=== PATIENT | male | born 1975 | race Caucasian/White ===

== ENCOUNTER 2024-06-17 03:38 | Inpatient (IN) | payer OTHER, SELFPAY ==
[2024-06-17] VITALS (111 sets, daily range): BP systolic 106–139; BP diastolic 59–87; PULSE 43–88; TEMP 36.4–37.4; O2SAT 89–100; BMI 29.8; BMI 29.9
--- NOTE | 2024-06-17 03:56 | CT_ITS ---
The [address] [address] Patient Name: LETHA SALMON MRN: [id number] date: 1975 Sex: M Assigned Patient Location: ER Current Patient Location: .[facility] Accession/Order Number: [id number] Exam Date: 06/17/2024 04:33 Report Date: 06/17/2024 05:05 At the request of: MORTEZA KEYES Procedure: CT abdomen pelvis w con EXAM: CT abdomen pelvis w con HISTORY: 2 days of diffuse abdominal pain COMPARISON: None. TECHNIQUE: Axial CT imaging was performed through the abdomen and pelvis with intravenous contrast. Multiplanar reformats were performed. Dose reduction techniques were achieved by using automated exposure control and/or adjustment of mA and/or kV according to patient size and/or use of iterative reconstruction technique. FINDINGS: Lung bases: Lung bases are clear. No pleural effusion. GI upper: Unremarkable. Liver: Normal size and contour. Gallbladder: No significant abnormality. No cholelithiasis. Biliary system: No intra or extrahepatic biliary ductal dilatation. Spleen: Normal size. Pancreas: Unremarkable. Adrenal glands: Normal adrenal glands. Kidneys/ureters: Normal contours. No hydronephrosis. No nephrolithiasis or ureterolithiasis. Vessels: No aneurysm. Lymph Nodes: No lymphadenopathy. Small bowel: No wall thickening or dilatation. Colon: No dilatation. There are sigmoid diverticulosis. There is short segment circumferential wall thickening of the sigmoid with surrounding fat stranding and adjacent pocket of air, measuring 1.4 x 3.8 cm, representing perforated acute sigmoid diverticulitis. Appendix: No findings of appendicitis. Peritoneal cavity: Fat stranding of the lower abdomen and pneumoperitoneum. Lower : Unremarkable. Bones: No acute bony abnormality. Soft tissues: No acute finding. Additional findings: None. CT/CT abdomen pelvis w con IMPRESSION: perforated acute sigmoid diverticulitis. Electronically authenticated by: ELIESER DAVILA Date: 06/17/2024 05:05
--- NOTE | 2024-06-17 03:58 | ED.ABDPAIN1 ---
HPI - Abdominal Pain General Chief Complaint: Abdominal Pain Stated Complaint: BODYACHES BACK PAIN Time Seen by Provider: 06/17/24 03:43 Source: patient Mode of arrival: walk-in Limitations: no limitations History of Present Illness HPI narrative: 49-year-old male presents for diffuse abdominal pain. It started 2 days ago and he has not really been able to eat anything. He has never had abdominal issues previously and is never had any abdominal surgeries. The pain is continuous and he points mostly to the mid abdomen but he states it hurts everywhere. No constipation or diarrhea. The pain is moderate to severe. Related Data Allergies Allergy/AdvReac Type Severity Reaction Status Date / Time No Known Drug Allergies Allergy Verified 06/17/24 03:48 Review of Systems ROS Narrative A ten point review of systems is negative except as noted above. Exam Narrative Exam Narrative: Nurses note and vital signs reviewed and patient is not hypoxic. General: The patient appears uncomfortable. Skin: Warm, dry, no pallor noted. There is no rash noted. Head: Normocephalic, atraumatic Eye: Normal conjunctiva, no drainage Ears, Nose, Mouth, and Throat: oral mucosa is moist. Nares patent. Cardiovascular: Regular Rate and Rhythm Respiratory: Patient is in no distress, no accessory muscle use, lungs are clear to auscultation, no wheezing, rales or rhonchi Back: non-tender GI: Diffuse tenderness. No masses. Musculoskeletal: The patient has no evidence of calf tenderness, no pitting edema, symmetrical pulses noted bilaterally Neurological: A&O, normal speech Psychiatric: Cooperative Constitutional Vital Signs, click to edit/add: Last Vital Signs Temp 99.1 F 06/17/24 03:44 Pulse 88 06/17/24 03:44 Resp 06/17/24 03:44 BP 123/81 06/17/24 03:44 Pulse Ox 98 06/17/24 03:44 Course Vital Signs Vital signs: Vital Signs Temperature 99.1 F 06/17/24 03:44 Pulse Rate 88 06/17/24 03:44 Respiratory Rate 06/17/24 03:44 Blood Pressure 123/81 06/17/24 03:44 Pulse Oximetry 98 06/17/24 03:44 Temperature 99.1 F 06/17/24 03:44 Pulse Rate 88 06/17/24 03:44 Respiratory Rate 06/17/24 03:44 Blood Pressure 123/81 06/17/24 03:44 Pulse Oximetry 98 06/17/24 03:44 MDM - Abdominal Pain MDM Narrative Medical decision making narrative: WBC is 20,000. CT scan is ordered and pending and the patient is signed out to Dr. Hagan. Differential Diagnosis Differential diagnosis: Likely abdominal pain, acute appendicitis, calculus of kidney, constipation, diverticulitis, small bowel obstruction and other (Biliary disease) Lab Data Attestation: I reviewed the patient's lab results. Labs: Lab Results 06/17/24 Range/Units 04:00 WBC 20.2 H (4.0-11.0) 10^3/uL RBC 4.73 (4.70-6.10) 10^6/uL Hgb 15.3 (14.0-18.0) g/dL Hct 43.7 (42.0-54.0) % MCV 92.4 (80.0-94.0) fL MCH 32.3 (25.9-34.0) pg MCHC 35.0 (29.9-35.2) g/dL RDW 11.9 (11.0-15.0) % Plt Count 218 (150-450) 10^3/uL MPV 10.4 (9.5-13.5) fL Neut % (Auto) 88.6 H (43.0-75.0) % Lymph % (Auto) 3.7 L (20.5-60.0) % [place] % (Auto) 6.7 (1.7-12.0) % Eos % (Auto) 0.2 L (0.9-7.0) % Baso % (Auto) 0.1 L (0.2-2.0) % Neut # (Auto) 17.9 H (1.4-6.5) 10^3/uL Lymph # (Auto) 0.7 L (1.2-3.8) 10^3/uL [place] # (Auto) 1.4 H (0.3-0.8) 10^3/uL Eos # (Auto) 0.1 (0.0-0.7) 10^3/uL Baso # (Auto) 0.0 (0.0-0.1) 10^3/uL Abs Immat Gran (auto) 0.14 H (0.00-0.03) 10^3/uL Imm/Tot Granulo (auto) 0.7 H (0.0-0.5) % Sodium 134 L (136-145) mmol/L Potassium 4.0 (3.5-5.1) mmol/L Chloride 101 (98-107) mmol/L Carbon Dioxide 23.0 (21.0-32.0) mmol/L Anion Gap 14.0 BUN 17.0 (7.0-18.0) mg/dL Creatinine 0.95 (0.70-1.30) mg/dL Est GFR ( Amer) >60 (>=60) Est GFR (Non-Af Amer) >60 (>=60) BUN/Creatinine Ratio 17.9 Glucose 139 H (74-106) mg/dL Calcium 8.9 (8.5-10.1) mg/dL Total Bilirubin 4.0 H (0.2-1.0) mg/dL Direct Bilirubin 0.8 H* (0.0-0.2) mg/dL AST 26 (15-37) U/L ALT 43 (16-63) U/L Alkaline Phosphatase 135 H (46-116) U/L Total Protein 7.2 (6.4-8.2) g/dL Albumin 3.4 (3.4-5.0) g/dL Globulin 3.8 g/dL Albumin/Globulin Ratio 0.9 Amylase 37 (25-115) U/L Lipase 21.0 (16.0-77.0) U/L Discharge Plan Discharge Chief Complaint: Abdominal Pain Clinical Impression: Abdominal pain Patient Disposition: Still a Patient Print Language: Mohawk Referrals: Physician,Non-Staff, MD [Primary Care Provider] - 1 week
[2024-06-17 04:14] LABS: Basophils Percent Auto 0.1 % (0.2-2.0); Eosinophils Absolute Auto 0.1 10^3/uL (0.0-0.7); Eosinophils Percent Auto 0.2 % (0.9-7.0); Hematocrit 43.7 % (42.0-54.0); Hemoglobin 15.3 g/dL (14.0-18.0); Immature Granulocytes Abs Auto 0.14 10^3/uL (0.00-0.03); Immature Granulocytes Pct Auto 0.7 % (0.0-0.5); Lymphocytes Absolute Auto 0.7 10^3/uL (1.2-3.8); Lymphocytes Percent Auto 3.7 % (20.5-60.0); Mean Corpuscular Hemoglobin 32.3 pg (25.9-34.0); Mean Corpuscular Volume 92.4 fL (80.0-94.0); Mean Platelet Volume 10.4 fL (9.5-13.5); Monocytes Absolute Auto 1.4 10^3/uL (0.3-0.8); Monocytes Percent Auto 6.7 % (1.7-12.0); Neutrophils Absolute Auto 17.9 10^3/uL (1.4-6.5); Neutrophils Percent Auto 88.6 % (43.0-75.0); Platelet Count 218 10^3/uL (150-450); Red Blood Count 4.73 10^6/uL (4.70-6.10); Red Cell Distribution Width 11.9 % (11.0-15.0); White Blood Count 20.2 10^3/uL (4.0-11.0)
[2024-06-17] MEDS: ONDANSETRON PF 4 MG/2 ML VIAL IV ×3 (04:14→20:48)
[2024-06-17] MEDS: 0.9 % SODIUM CHLORIDE 1,000 ML 125 ML IV (04:14)
[2024-06-17] MEDS: MORPHINE SULFATE 4 MG/ML VIAL IV (04:17)
[2024-06-17 04:34] LABS: Alanine Aminotransferase 43 U/L (16-63); Albumin Globulin Ratio 0.9; Albumin Level 3.4 g/dL (3.4-5.0); Alkaline Phosphatase 135 U/L (46-116); Amylase 37 U/L (25-115); Aspartate Amino Transferase 26 U/L (15-37); BUN Creatinine Ratio 17.9; Calcium 8.9 mg/dL (8.5-10.1); Chloride 101 mmol/L (98-107); Estimated GFR (African America >60 (>=60); Estimated GFR (Non-African Ame >60 (>=60); Globulin 3.8 g/dL; Glucose 139 mg/dL (74-106); Sodium 134 mmol/L (136-145); Total Protein 7.2 g/dL (6.4-8.2)
[2024-06-17 04:43] LABS: Bilirubin Direct 0.8 mg/dL (0.0-0.2)
[2024-06-17] MEDS: HYDROMORPHONE HCL 1 MG/ML CARTRIDGE IV ×3 (05:25→10:28)
[2024-06-17] MEDS: PIPERACILLIN SODIUM/TAZOBACTAM 3.375 GM in 0.9 % SODIUM CHLORIDE 50 ML IV ×3 (05:27→21:55)
--- NOTE | 2024-06-17 05:41 | PC.NURSE ---
Dr. Hagan speaks with Dr. Oviedo at this time.
[2024-06-17] MEDS: LACTATED RINGER'S SOLUTION 1,000 ML 50 ML IV ×3 (06:20→09:19)
--- NOTE | 2024-06-17 06:36 | PC.NURSE ---
RN from surgery department arrives at this time and patient taken to surgical area.
--- NOTE | 2024-06-17 07:15 | P.GSHP_ITS ---
History of Present Illness History of Present Illness Chief complaint: BODYACHES BACK PAIN Narrative: 49 yo M presents with abdominal pain that started Sunday. He thought at first he was constipated and took a bowel regimen. Pain got far worse into Sunday and he started having diffuse tenderness throughout. Denies any bloody BMs. Never had this pain before. No prior surgeries. Takes medicine for GERD. Denies use of tobacco products. Discussed the need for surgery and patient understood the risks and agreed to proceed. Review of Systems ROS Status of ROS 10 or more systems reviewed and unremark able except as noted in history and below Meds Home Medications and Allergies Allergies Allergy/AdvReac Type Severity Reaction Status Date / Time No Known Drug Allergies Allergy Verified 06/17/24 03:48 Exam Constitutional Vital Signs, click to edit/add: Last Vital Signs Temp 99.1 F 06/17/24 03:44 Pulse 68 06/17/24 06:21 Resp 18 06/17/24 06:21 BP 118/75 06/17/24 06:21 Pulse Ox 96 06/17/24 06:21 O2 Del Method Room Air 06/17/24 06:21 Common normals: average body habitus, oriented x3, healthy appearing and alert HENMT Common normals: normocephalic Head and scalp: normal to inspection Eye Common normals: PERRL and EOMs intact bilaterally Respiratory Common normals: normal respiratory effort and no retractions Cardio Common normals: regular rhythm Rate: tachycardic GI Palpation: soft, tender and guarding Other: + diffuse tenderness, + rebound, no prior scars noted Extremity Common normals: normal to inspection and full ROM Neuro Common normals: oriented x3 Sensorium/orientation: awake and alert Psych Appearance: grossly normal and well kempt Results Results Abdomen CT scan report/results: image reviewed Assessment and Plan Assessment and Plan (1) Abdominal pain: (2) Perforated sigmoid colon: Plan 1. Ex lap, bowel resection, all indicated procedures, consent obtained and RN witnessed 2. Cont IV Abx, IV fluids, cont sol 3. Post op recommendations to follow
[2024-06-17] MEDS: HYDROMORPHONE HCL 1 MG/ML CARTRIDGE INJ (10:12)
[2024-06-17] MEDS: LACTATED RINGER'S SOLUTION 1,000 ML 75 ML IV (10:47)
[2024-06-17] MEDS: OXYCODONE HCL 5 MG TABLET PO ×3 (10:53→21:56)
--- NOTE | 2024-06-17 11:01 | PC.NURSE ---
dressing is clean and dry at this time upon transfer to icu urine is concentrated yellow in catheter
--- NOTE | 2024-06-17 11:48 | W.PM.PROCNOT ---
Date of procedure: 06/17/24 Pre-op diagnosis: perforated bowel Post-op diagnosis: other (perforated sigmoid diverticulitis ) Procedure: Procedure: exploratory laparotomy, sigmoidectomy, end colostomy creation, abdominal washout Findings: wound class 4, perforated and inflamed sigmoid colon consistent with perforated sigmoid diverticulitis Patient was taken operating room placed on operating table underwent general anesthesia preop antibiotics were given and at this time. At this point the abdomen is prepped draped in normal sterile fashion. A midline incision was made with a 10 blade scalpel through the skin followed by electrocautery for dissection down to the fascia. The fascia was entered sharply under care and direct visualization. Once access to the peritoneal cavity was achieved an [employer] wound retractor system was placed. There was of note at the start of the case opaque white purulent fluid consistent with wound class 4. Some of the small bowel was involved with the inflammation. This was gently . At this time I began with mobilizing the lower sigmoid.? Small bowel was retracted away after the patient was placed in Trendelenburg position. I began by coming from the medial to lateral approach.? Lifting the colon superiorly.? Was able to find the vascular structures.? Once I was able to gain control of the vessels using the aid of a ligasure I then continued the dissection superiorly.?? Dissection was carried from a medial to lateral approach as is a normal for colectomy.? Once were happy with our superior dissection I then turned my attention to the white line of Toldt.? I freed this up superiorly off for good mobilization. Once I was happy with the mobilization of the colon.? And make sure this would reach the anterior abdominal wall. At this point a 75mm stapler was used to fire across the appropriate proximal location of the descending colon making sure to have removed all the diseased sigmoid colon that was perforated and inflamed.? There was no bleeding from the staple line at that time.? And the end of the descending colon came up nicely to the anterior abdominal wall. A spot on the L lateral abdomen pre-determined for a stoma was then excised after grasping the skin with a Arely.? Dissection was carried down the fascia. A stellate incision was made in the anterior fascia. The muscle was split and then a posterior incision was made in the posterior fascia. The end of the colon which was previously grasped with a system port bowel grasper was then but through the hole.? After confirming the at the size of the hole was wide enough to accommodate the colon without ischemia. The distal end of the colon was then freely dissected and a curved TA stapler was used to transect the colon at the rectosigmoid junction distal to the diseased bowel. The rectal stump was marked with a 2-0 blue Prolene stitch for easier finding on future reversal. The abdomen was irrigated and the small bowel was ran and confirmed to be healthy and no serosal tears or issues. The bowel planned for end colostomy was again checked for viability, appropriate length with no tension, no twisting of the bowel or mesentery and good blood flow. All instruments were removed from the abdomen and the colten wound retractor. Counts were correct at this time. The midline fascia was closed with looped 0 PDS from inferior and superior in a running fashion. The skin was irrigated and closed loosely with danial. The midline incision was covered and the end ostomy was then matured in a verna type fashion with 3-0 vicryl. A wound ostomy appliance was placed. The ostomy was checked with finger digitation to ensure an open fascia, which was confirmed. Counts were correct at the end of the case. The patient tolerated the procedure and was taken to the PACU in stable condition. Anesthesia: DIEGO Surgeon: Jamie Oviedo Estimated blood loss (mL): 20 Pathology: other (sigmoid colon) Condition: stable Disposition: PACU
[2024-06-17] MEDS: ACETAMINOPHEN 500 MG TABLET 1000 MG PO (14:12)
[2024-06-17] MEDS: GABAPENTIN 100 MG CAPSULE PO ×2 (14:13→21:57)
[2024-06-17] MEDS: CYCLOBENZAPRINE HCL 10 MG TABLET PO ×2 (14:13→21:55)
--- NOTE | 2024-06-17 14:21 | P.HP_ITS ---
HPI H&P: HPI History of Present Illness Chief complaint: BODYACHES BACK PAIN Narrative: 49-year-old male with no past medical history presented to the hospital with left lower quadrant abdominal pain that was persistent, associated with nausea and loss of appetite. He was evaluated in ER and was found to have acute sigmoid diverticulitis with perforation. She was taken to the OR earlier in the morning. Patient was seen postoperatively after colectomy, with formation of colostomy. He denies nausea, vomiting. He is complaining of mild postoperative abdominal pain. He has no prior history of colonoscopy or intra-abdominal surgeries. He is generally healthy with no significant past medical history. Opioid HPI Opioid Management Most Recent Pain and Opioid Data: Last Pain Scale 4 06/18/24 06:17 Last Pain Assessment 06/18/24 06:00 Last MAR Pain Assessment 06/18/24 06:17 Last ORT Total Score 0 06/17/24 11:13 Last ORT Risk Category Low Risk 06/17/24 11:13 Review of Systems ROS Status of ROS 10 or more systems reviewed and unremark able except as noted in history and below PFSH PFSH Medical History (Updated 06/17/24 @ 14:24 by Shaikh Ileana MD) Perforated sigmoid colon ?K63.1 - Perforation of intestine (nontraumatic) (ICD-10) Colostomy in place ?Z93.3 - Colostomy status (ICD-10) Family History (Updated 06/17/24 @ 11:50 by Cynthia Rivero RN) Mother Family history of pancreatic cancer Brother Diabetes Father Diabetes Social History (Updated 06/17/24 @ 11:55 by Cynthia Rivero RN) Within the past year, how often did you have a drink containing alcohol: monthly or less Within the past year, how many standard drinks containing alcohol did you have on a typical day: 1 or 2 Within the past year, how often did you have six or more drinks on one occasion: never Total score: 0 Score interpretation: A score less than 4 is consistent with normal alcohol consumption. Smoking status: Former smoker Non-prescribed substance use: cannabis (any form) Non-prescribed substance use details: smoke and use edibles marijuana Highest level of school completed/degree received: 11th grade Do you want help with school or training: No Are you now , , , , never or living with a partner: In a typical week, how many times do you talk on the telephone with family, friends, or neighbors: 3 or more times per week How often do you get together with friends or relatives: 3 or more times per week How often do you attend mormonism or buddhism services: never Little interest or pleasure in doing things: not at all Feeling down, depressed, or hopeless: not at all Feel stressed/tense/nervous/anxious/difficulty sleeping: to some extent Life stressors: financial matters Life stressor details: afraid of losing home from being off work Due to disability, difficulty making decisions: No Do you think of yourself as: straight/heterosexual Gender Identity: male Meds Home Medications and Allergies Home Medications ?Medication ?Instructions ?Recorded ?Confirmed ?Type No Known Home Medications 06/17/24 06/17/24 History Allergies Allergy/AdvReac Type Severity Reaction Status Date / Time No Known Drug Allergies Allergy Verified 06/17/24 03:48 Exam Constitutional Vital Signs, click to edit/add: Last Vital Signs Temp 98.6 F 06/17/24 11:13 Pulse 61 06/17/24 11:13 Resp 16 06/17/24 11:13 BP 121/81 06/17/24 11:13 Pulse Ox 93 L 06/17/24 11:13 O2 Del Method Room Air 06/17/24 11:13 Documenting provider has reviewed patient's vital signs: yes Common normals: no apparent distress and oriented x3 General appearance: cooperative HENMT Common normals: normocephalic and head/scalp atraumatic Head and scalp: normocephalic and atraumatic Eye Common normals: conjunctivae normal and no scleral icterus Conjunctiva: conjunctiva(e) normal Respiratory Common normals: normal respiratory effort and clear to auscultation bilaterally Effort & inspection: able to speak in complete sentences Auscultation: clear to auscultation bilaterally Cardio Common normals: regular rate, S1 normal heart sound and S2 normal heart sound Rate: regular rate Heart sounds: S1 normal and S2 normal GI Common normals: soft to palpation and no hepatosplenomegaly Other: post op dressing from laparotomy. Has colostomy in place. Extremity Common normals: no clubbing, cyanosis or edema Neuro Common normals: oriented x3, moves all extremities and no focal motor deficits Psych Common normals: mental status grossly normal, denies hallucinations, denies homicidal ideation and denies suicidal ideation Results Labs Labs: Short CBC 06/17/24 Range/Units 04:00 WBC 20.2 H (4.0-11.0) 10^3/uL Hgb 15.3 (14.0-18.0) g/dL Hct 43.7 (42.0-54.0) % Plt Count 218 (150-450) 10^3/uL BMP 06/17/24 04:00 Sodium 134 L Potassium 4.0 Chloride 101 Carbon Dioxide 23.0 BUN 17.0 Creatinine 0.95 Glucose 139 H Calcium 8.9 Liver Function 06/17/24 Range/Units 04:00 Total Bilirubin 4.0 H (0.2-1.0) mg/dL Direct Bilirubin 0.8 H* (0.0-0.2) mg/dL AST 26 (15-37) U/L ALT 43 (16-63) U/L Alkaline Phosphatase 135 H (46-116) U/L Albumin 3.4 (3.4-5.0) g/dL Assessment and Plan Assessment and Plan (1) Perforated sigmoid colon: (2) Abdominal pain: Qualifiers: Abdominal location: left lower quadrant Qualified Code(s): R10.32 - Left lower quadrant pain Plan Patient presented with left lower quadrant abdominal pain, found to have perforated sigmoid colon. He is a status post laparotomy, colectomy and now has colostomy in place. He is currently on ice chips only as per general surgery. Continue with combination of oral and IV narcotics for postoperative pain control. Continue with supportive care. Postoperative care as per general surgery. Continue with IV Zosyn. Urinary Catheter Management Urinary Catheter Management Urethral: Cath placed during this visit: no
[2024-06-17] MEDS: PANTOPRAZOLE SODIUM 40 MG VIAL IV (14:48)
--- NOTE | 2024-06-17 14:50 | SWNOTE1 ---
SW stopped in and spoke with pt in regards to financial concerns. Pt voiced he was not feeling very good at all. SW did recommend to pt to call his HR team at his employer and discuss concerns with them. SW not sure if his employer will have any short term assistance. Pt voiced understanding.
[2024-06-17] MEDS: MORPHINE SULFATE 2 MG/ML SYRINGE IV ×2 (15:01→19:21)
[2024-06-17 19:08] LABS: Bilirubin Urine MODERATE (NEGATIVE); Blood Urine SMALL (NEGATIVE); Clarity Urine CLEAR (CLEAR); Color Urine DK. ORANGE (YELLOW); Glucose Urine UA NEGATIVE (NEGATIVE); Ketones Urine 15 mg/dL (NEGATIVE); Leukocyte Esterase Urine NEGATIVE (NEGATIVE); Nitrite Urine NEGATIVE (NEGATIVE); Protein Urine 100 mg/dL (NEG/TRACE); Specific Gravity Urine >=1.030 (1.005-1.025)
[2024-06-17 19:15] LABS: Bacteria Urine MODERATE #/HPF (NONE SEEN); Cast Seen? NONE SEEN #/LPF (NONE SEEN); Crystals Seen? None Seen #/HPF (None Seen); Mucus Urine MODERATE (NONE SEEN); Squamous Epithelial Cell Urine NONE SEEN #/LPF (NONE/RARE); Urine Culture Indicated YES
[2024-06-17] MEDS: HYDROMORPHONE HCL 1 MG/ML CARTRIDGE 0.5 MG IVP (20:22)
[2024-06-17] MEDS: ENOXAPARIN SODIUM 40 MG/0.4 ML SYRINGE SUBQ (20:48)
[2024-06-17] MEDS: LACTATED RINGER'S SOLUTION 1,000 ML 115 ML IV (20:49)
[2024-06-18] VITALS (35 sets, daily range): BP systolic 96–145; BP diastolic 66–82; PULSE 54–128; TEMP 36.9–37.2; O2SAT 94–99
[2024-06-18] MEDS: HYDROMORPHONE HCL 1 MG/ML CARTRIDGE 0.5 MG IVP ×2 (00:05→04:00)
[2024-06-18] MEDS: OXYCODONE HCL 5 MG TABLET PO (06:17)
[2024-06-18] MEDS: GABAPENTIN 100 MG CAPSULE PO ×2 (06:17→21:42)
[2024-06-18] MEDS: LACTATED RINGER'S SOLUTION 1,000 ML 115 ML IV ×2 (06:17→16:01)
[2024-06-18] MEDS: PIPERACILLIN SODIUM/TAZOBACTAM 3.375 GM in 0.9 % SODIUM CHLORIDE 50 ML IV ×3 (06:18→21:50)
[2024-06-18] MEDS: CYCLOBENZAPRINE HCL 10 MG TABLET PO (06:18)
[2024-06-18 06:35] LABS: Basophils Percent Auto 0.2 % (0.2-2.0); Eosinophils Percent Auto 0.1 % (0.9-7.0); Hemoglobin 13.5 g/dL (14.0-18.0); Immature Granulocytes Abs Auto 0.04 10^3/uL (0.00-0.03); Immature Granulocytes Pct Auto 0.3 % (0.0-0.5); Lymphocytes Percent Auto 8.5 % (20.5-60.0); Mean Corpuscular HGB Conc 33.8 g/dL (29.9-35.2); Mean Corpuscular Hemoglobin 32.1 pg (25.9-34.0); Mean Corpuscular Volume 95.2 fL (80.0-94.0); Mean Platelet Volume 9.8 fL (9.5-13.5); Monocytes Percent Auto 7.8 % (1.7-12.0); Neutrophils Absolute Auto 10.2 10^3/uL (1.4-6.5); Neutrophils Percent Auto 83.1 % (43.0-75.0); Platelet Count 163 10^3/uL (150-450); White Blood Count 12.3 10^3/uL (4.0-11.0)
[2024-06-18 07:03] LABS: Alanine Aminotransferase 30 U/L (16-63); Albumin Globulin Ratio 0.8; Albumin Level 2.4 g/dL (3.4-5.0); Alkaline Phosphatase 104 U/L (46-116); Anion Gap 11.5; Aspartate Amino Transferase 16 U/L (15-37); BUN Creatinine Ratio 17.4; Bilirubin Total 2.9 mg/dL (0.2-1.0); Calcium 8.7 mg/dL (8.5-10.1); Carbon Dioxide 26.2 mmol/L (21.0-32.0); Chloride 105 mmol/L (98-107); Estimated GFR (African America >60 (>=60); Estimated GFR (Non-African Ame >60 (>=60); Globulin 3.2 g/dL; Glucose 93 mg/dL (74-106); Potassium 4.7 mmol/L (3.5-5.1); Sodium 138 mmol/L (136-145); Total Protein 5.6 g/dL (6.4-8.2)
[2024-06-18] MEDS: HYDROMORPHONE HCL 0.5 MG/0.5 ML SYRINGE IV ×3 (08:07→20:02)
[2024-06-18] MEDS: KETOROLAC TROMETHAMINE 30 MG/ML VIAL IVP ×2 (08:07→16:00)
--- NOTE | 2024-06-18 09:46 | P.IMPN_ITS ---
Progress Note: A&P Assessment and Plan (1) Perforated sigmoid colon: Assessment and Plan: Status post colectomy with colostomy formation. Postoperative care as per general surgery. Pain is reasonably controlled. Patient is strictly n.p.o. Monitor closely. (2) Abdominal pain: Assessment and Plan: Due to perforated sigmoid diverticulitis. Status post colectomy with colostomy formation. Qualifiers: Abdominal location: left lower quadrant Qualified Code(s): R10.32 - Left lower quadrant pain Internal Medicine - PN: Subj Subjective Interval history: Seen and examined. No overnight events. Pain is reasonably controlled. Exam Constitutional Vital Signs, click to edit/add: Last Vital Signs Temp 99.0 F 06/18/24 07:37 Pulse 77 06/18/24 08:25 Resp 56 H 06/18/24 08:21 BP 116/72 06/18/24 08:00 Pulse Ox 95 06/18/24 08:00 O2 Del Method Room Air 06/18/24 04:00 Documenting provider has reviewed patient's vital signs: yes Common normals: no apparent distress and oriented x3 General appearance: cooperative Respiratory Common normals: normal respiratory effort and clear to auscultation bilaterally Effort & inspection: able to speak in complete sentences Auscultation: clear to auscultation bilaterally Cardio Common normals: regular rate, S1 normal heart sound and S2 normal heart sound Rate: regular rate Heart sounds: S1 normal and S2 normal GI Common normals: soft to palpation and no hepatosplenomegaly Other: post op dressing from laparotomy. Has colostomy in place. Extremity Common normals: no clubbing, cyanosis or edema Neuro Common normals: oriented x3, moves all extremities and no focal motor deficits Psych Common normals: mental status grossly normal, denies hallucinations, denies homicidal ideation and denies suicidal ideation Internal Medicine - PN: Obj Da Labs Labs: Laboratory Results - last 24 hr 06/17/24 06/18/24 18:45 06:20 WBC 12.3 H RBC 4.20 L Hgb 13.5 L Hct 40.0 L MCV 95.2 H MCH 32.1 MCHC 33.8 RDW 12.0 Plt Count 163 MPV 9.8 Neut % (Auto) 83.1 H Lymph % (Auto) 8.5 L [place] % (Auto) 7.8 Eos % (Auto) 0.1 L Baso % (Auto) 0.2 Neut # (Auto) 10.2 H Lymph # (Auto) 1.0 L [place] # (Auto) 1.0 H Eos # (Auto) 0.0 Baso # (Auto) 0.0 Abs Immat Gran (auto) 0.04 H Imm/Tot Granulo (auto) 0.3 Sodium 138 Potassium 4.7 Chloride 105 Carbon Dioxide 26.2 Anion Gap 11.5 BUN 16.0 Creatinine 0.92 Est GFR ( Amer) >60 Est GFR (Non-Af Amer) >60 BUN/Creatinine Ratio 17.4 Glucose 93 Calcium 8.7 Total Bilirubin 2.9 H AST 16 ALT 30 Alkaline Phosphatase 104 Total Protein 5.6 L Albumin 2.4 L Globulin 3.2 Albumin/Globulin Ratio 0.8 Urine Color Dk. orange Urine Clarity Clear Urine pH 6.0 Ur Specific [place] >=1.030 A Urine Protein 100 A Urine Glucose (UA) Negative Urine Ketones 15 A Urine Occult Blood Small A Urine Nitrite Negative Urine Bilirubin Moderate A Urine Urobilinogen 4.0 A Ur Leukocyte Esterase Negative Urine RBC 5-10 A Urine WBC 2-5 A Ur Squamous Epith Cells None seen Urine Crystals None seen Urine Bacteria Moderate A Urine Casts None seen Urine Mucus Moderate A Ur Culture Indicated? Yes Urinary Catheter Management Urinary Catheter Management Urethral: Cath placed during this visit: no
--- NOTE | 2024-06-18 10:09 | CM.NOTE ---
Rounds made with Dr. Tejeda. Dr. Tejeda discussed treatment plan with Javier and need for increased ambulation. Physicial Therapy to be ordered. No plan for discharge today
--- NOTE | 2024-06-18 10:09 | W.PM.WC ---
Wound Consult Note Assessment and Plan (1) Perforated sigmoid colon: Reason for Consult: ostomy care and education Assessment and Plan: Patient underwent exploratory lap, sigmoidectomy, end colostomy and abdominal washout 06.17.[address] O[place]o. He was having abdominal pain and presented to [facility] ER and found to have a perforated sigmoid diverticulitis. Patient was recently moved from ICU to Med/Surg. He is resting in bed, just receiving pain medication. He states he is doing ok but is having pain as he is guarding, speaking quietly, and not moving much in the bed. After brief introduction, stoma was assessed. Stoma type: End colostomy Location: LLQ abdomen Size: 1 round Stoma position: Appears to be fairly flush. Did not remove pouching appliance today due to patient's pain and appliance is in place without leakage. Stoma color: Moist, red and shiny There is some bloody drainage in the pouch along with a small amount of flatus. Abdomen is appropriately softly distended due to surgery with midline post op dressing in place. Patient is currently in a post op 2 piece appliance. No signs of leakage at this time. Plan is to return tomorrow for continued ostomy teaching and hands on teaching of preparing an appliance for pouch change and skin care during a pouch change. Left education folder as well as supplies and my contact information if any urgent matters arise prior to planned education tomorrow. Patient states his is currently out of state visiting their daughter and grandchild and will not be home until next Sunday. (2) Abdominal pain: Qualifiers: Abdominal location: left lower quadrant Qualified Code(s): R10.32 - Left lower quadrant pain Plan I would highly recommend home care to assist patient in continued education and care of new colostomy at discharge as well as supply ordering. Discussed with bedside RN today. Patient does seem motivated to learn. Did go over emptying pouch briefly today showing patient how to use clip closure, when and how to empty. Patient asked appropriate questions regarding daily care, showering, working. Please call [phone] with any questions and concerns. Will revisit tomorrow for continued education in ostomy care. Ethan Lowry, RN, CWON
--- NOTE | 2024-06-18 11:57 | PM.GSPN ---
Progress Note: A&P Assessment and Plan (1) Perforated sigmoid colon: Assessment and Plan: s/p 06/17/24 ex lap, sigmoidectomy and end colostomy creation Strict NPO, if has emesis place NGT to LIWS, monitor ostomy output and stoma appearance IV meds for pain and muscle spasms encourage ambulation and up in chair, continue hourly incentive spirometry use PT/OT referral Consult wound ostomy team Gentle IV fluids, want to avoid bowel edema, if UOP adequate can remove sol catheter (2) Abdominal pain: Qualifiers: Abdominal location: left lower quadrant Qualified Code(s): R10.32 - Left lower quadrant pain Subjective Subjective Interval history: Doing ok this am. He just switched rooms/beds and he said that after standing up and moving he actually had great relief from a lot of his abdominal discomfort and distention. He is no longer nauseated but did have emesis last night once. Questions answered. Informed him the importance of being up in a chair and walking around today. Keep up IS use. Exam Narrative Exam Narrative: General: awake, alert, no distress Head: normocephalic, atraumatic Neck: supple, no tracheal deviation Heart: RRR Lungs: equal chest rise and fall, non labored breathing Abdomen: soft, appropriate tenderness, no rebound or guarding, left sided ostomy pink and patent, bowel sweat noted in bag, midline incision dressing c/d/i Extremities: no lesions, grossly normal Skin: intact, no cyanosis Psychological: no apparent speech or mood disorder, appropriate for encounter Constitutional Vital Signs, click to edit/add: Last Vital Signs Temp 99.0 F 06/18/24 07:37 Pulse 77 06/18/24 08:25 Resp 56 H 06/18/24 08:21 BP 116/72 06/18/24 08:00 Pulse Ox 95 06/18/24 11:08 O2 Del Method Room Air 06/18/24 11:08 Urinary Catheter Management Urinary Catheter Management Urethral: Cath placed during this visit: no Urethral indwelling: Yes
--- NOTE | 2024-06-18 12:50 | SWNOTE1 ---
SW spoke to pt about home health for cholostomy care. Pt is in agreement as long as his insurance pays. SW let pt know that SW will check to see what HH takes his insurance and they will let SW know if he has a co-pay of any kind. SW checked [address] and they do have [employer] on list of insurances. Referral sent to [address] . Referral included face sheet, ED note, H&P, provider notes, general surgery notes, operative note, case management report, wound consult,and PT/OT notes.
[2024-06-18] MEDS: METHOCARBAMOL 1,000 MG/10 ML VIAL 1000 MG IV ×2 (13:04→21:50)
--- OUTSIDE RECORDS SUMMARY | 2024-06-18 13:45 | XMS_ITS | CCD ---
Author Organization [facility] Inform ion Partnership [facility] Care Team Providers Care Chair Frame Builder Name Role Phone DO Jamie Oviedo Attending Provider [phone] Results Test Name Value Interpretation Reference Range Facil ity Complete Blood Count Auto Di ffon 02-07-2022 Basophils (Bld) [#/Vol] 0.1 10*3/uL Normal 0.0-0.2 [facility] Comment on above: Order Comment: Reaso n for Exam Elevated liver enzymes Result Comment: PERF ORMED BY: [place] [address] PATHOLOGIST FIRE BOSS JONY CRISTOBAL M.D. Performed By: #### C BC, CMP, LIPID, PSATF #### [facility] [address] [place] [address] [place] Basophils/100 WBC (Bld) 0.9 % Normal . [facility] Comment on above: Order Comment: Reaso n for Exam Elevated liver enzymes Performed By: #### C BC, CMP, LIPID, PSATF #### [facility] [address] [place] [id number] [place] Eosinophils (Bld) [#/Vol] 0.1 10*3/uL Normal 0.0-0.45 [facility] Comment on above: Order Comment: Reaso n for Exam Elevated liver enzymes Performed By: #### C BC, CMP, LIPID, PSATF #### [facility] [address] [place] [address] [place] Eosinophils/100 WBC (Bld) 1.7 % Normal . [facility] Comment on above: Order Comment: Reaso n for Exam Elevated liver enzymes Performed By: #### C BC, CMP, LIPID, PSATF #### [facility] [address] [place] [address] Erythrocyte distribution width (RBC) [Ratio] 12.6 % Normal 12.0-14.8 [facility] Comment on above: Order Comment: Reaso n for Exam Elevated liver enzymes Performed By: #### C BC, CMP, LIPID, PSATF #### [facility] [address] Hematocrit (Bld) [Volume fraction] 45.2 % Normal 38.8-50.0 [facility] Comment on above: Order Comment: Reaso n for Exam Elevated liver enzymes Performed By: #### C BC, CMP, LIPID, PSATF #### [address] Hemoglobin (Bld) [Mass/Vol] 15.7 g/dL Normal 13.0-17.0 [facility] Comment on above: Order Comment: Reaso n for Exam Elevated liver enzymes Performed By: #### C BC, CMP, LIPID, PSATF #### [address] Lymphocytes (Bld) [#/Vol] 1.6 10*3/uL Normal 1.00-4.8 [facility] Comment on above: Order Comment: Reaso n for Exam Elevated liver enzymes Performed By: #### C BC, CMP, LIPID, PSATF #### [address] Lymphocytes/100 WBC (Bld) 27.5 % Normal . [facility] Comment on above: Order Comment: Reaso n for Exam Elevated liver enzymes Performed By: #### C BC, CMP, LIPID, PSATF #### [address] MCH (RBC) [Entitic mass] 32.3 pg Normal 27.5-35.2 [facility] Comment on above: Order Comment: Reaso n for Exam Elevated liver enzymes Performed By: #### C BC, CMP, LIPID, PSATF #### [address] MCV (RBC) [Entitic vol] 92.9 fL Normal 83.5-101 [facility] Comment on above: Order Comment: Reaso n for Exam Elevated liver enzymes Performed By: #### C BC, CMP, LIPID, PSATF #### [facility] [address] [place] [address] Mean Corpuscular HGB Conc 34.7 g/dL Normal 32.5-35.6 [facility] Comment on above: Order Comment: Reaso n for Exam Elevated liver enzymes Performed By: #### C BC, CMP, LIPID, PSATF #### [facility] [address] [place] [address] [place] Monocytes (Bld) [#/Vol] 0.4 10*3/uL Normal 0.0-0.8 [facility] Comment on above: Order Comment: Reaso n for Exam Elevated liver enzymes Performed By: #### C BC, CMP, LIPID, PSATF #### [facility] [address] [place] [address] Monocytes/100 WBC (Bld) 6.1 % Normal . [facility] Comment on above: Order Comment: Reaso n for Exam Elevated liver enzymes Performed By: #### C BC, CMP, LIPID, PSATF #### [facility] [address] [place] [address] [place] Neutrophils (Bld) [#/Vol] 3.8 10*3/uL Normal 1.8-7.7 [facility] Comment on above: Order Comment: Reaso n for Exam Elevated liver enzymes Performed By: #### C BC, CMP, LIPID, PSATF #### [facility] [address] [place] [address] [place] Neutrophils/100 WBC (Bld) 63.8 % Normal . [facility] Comment on above: Order Comment: Reaso n for Exam Elevated liver enzymes Performed By: #### C BC, CMP, LIPID, PSATF #### [facility] [address] [place] [address] [place] Nucleated RBC/100 WBC (Bld) [Ratio] 0.1 % Normal 0-0.5 [facility] Comment on above: Order Comment: Reaso n for Exam Elevated liver enzymes Performed By: #### C BC, CMP, LIPID, PSATF #### [address] [place] [address] [place] Platelet mean volume (Bld) [Entitic vol] 8.7 fL Normal 6.6-10.1 [facility] Comment on above: Order Comment: Reaso n for Exam Elevated liver enzymes Performed By: #### C BC, CMP, LIPID, PSATF #### [facility] [address] Platelets (Bld) [#/Vol] 281 10*3/uL Normal 150-450 [facility] Comment on above: Order Comment: Reaso n for Exam Elevated liver enzymes Performed By: #### C BC, CMP, LIPID, PSATF #### [facility] [address] [place] [address] RBC (Bld) [#/Vol] 4.86 10*6/uL Normal 3.90-5.60 [facility] Comment on above: Order Comment: Reaso n for Exam Elevated liver enzymes Performed By: #### C BC, CMP, LIPID, PSATF #### [address] WBC (Bld) [#/Vol] 6.0 10*3/uL Normal 4.5-11.0 [facility] Comment on above: Order Comment: Reaso n for Exam Elevated liver enzymes Performed By: #### C BC, CMP, LIPID, PSATF #### [facility] [address] [place] [address] Comprehensive Metabolic Pane jayda 02-07-2022 Albumin [Mass/Vol] 4.1 g/dL Normal 3.2-5.5 [facility] Comment on above: Order Comment: Reaso n for Exam Elevated liver enzymes Performed By: #### C BC, CMP, LIPID, PSATF #### [facility] [address] [place] [address] Albumin/Globulin [Mass ratio] 1.7 {ratio} Normal [facility] Comment on above: Order Comment: Reaso n for Exam Elevated liver enzymes Performed By: #### C BC, CMP, LIPID, PSATF #### [facility] [address] [place] [address] [place] ALP [Catalytic activity/Vol] 86 U/L Normal 32-92 [facility] Comment on above: Order Comment: Reaso n for Exam Elevated liver enzymes Performed By: #### C BC, CMP, LIPID, PSATF #### [facility] [address] [place] [address] [place] ALT [Catalytic activity/Vol] 42 U/L Normal 10-60 [facility] Comment on above: Order Comment: Reaso n for Exam Elevated liver enzymes Performed By: #### C BC, CMP, LIPID, PSATF #### [facility] [address] [place] [address] [place] AST [Catalytic activity/Vol] 23 U/L Normal 10-42 [facility] Comment on above: Order Comment: Reaso n for Exam Elevated liver enzymes Performed By: #### C BC, CMP, LIPID, PSATF #### [facility] [address] [place] [address] [place] Bilirubin [Mass/Vol] 0.9 mg/dL Normal 0.3-1.2 [facility] Comment on above: Order Comment: Reaso n for Exam Elevated liver enzymes Performed By: #### C BC, CMP, LIPID, PSATF #### [facility] [address] [place] [address] [place] Calcium [Mass/Vol] 9.4 mg/dL Normal 8.2-10.2 [facility] Comment on above: Order Comment: Reaso n for Exam Elevated liver enzymes Performed By: #### C BC, CMP, LIPID, PSATF #### [facility] [address] [place] [address] [place] Chloride [Moles/Vol] 105 mmol/L Normal 95-114 [facility] Comment on above: Order Comment: Reaso n for Exam Elevated liver enzymes Performed By: #### C BC, CMP, LIPID, PSATF #### [facility] [address] [place] [address] [place] CO2 [Moles/Vol] 27.4 mmol/L Normal 22.0-30.[address] [facility] Comment on above: Order Comment: Reaso n for Exam Elevated liver enzymes Performed By: #### C BC, CMP, LIPID, PSATF #### [facility] [address] [place] [address] [place] Creatinine [Mass/Vol] 0.99 mg/dL Normal 0.64-1.27 [facility] Comment on above: Order Comment: Reaso n for Exam Elevated liver enzymes Performed By: #### C BC, CMP, LIPID, PSATF #### [facility] [address] Estimated GFR ( Donna > 60 Normal [facility] Comment on above: Order Comment: Reaso n for Exam Elevated liver enzymes Result Comment: GFR estimated reference range: According to KDOQI guidelines, <60 ml/min/1.73m2 is sufficient to diagnose a patient with chronic kidney disease. Performed By: #### C BC, CMP, LIPID, PSATF #### [facility] [address] Estimated GFR (Non- Am > 60 Normal [facility] Comment on above: Order Comment: Reaso n for Exam Elevated liver enzymes Performed By: #### C BC, CMP, LIPID, PSATF #### [facility] [address] [place] [address] [place] Globulin (S) [Mass/Vol] 2.4 g/dL Normal [facility] Comment on above: Order Comment: Reaso n for Exam Elevated liver enzymes Performed By: #### C BC, CMP, LIPID, PSATF #### [facility] [address] Glucose [Mass/Vol] 90 mg/dL Normal 70-100 [facility] Comment on above: Order Comment: Reaso n for Exam Elevated liver enzymes Result Comment: [facility] om Glucose Reference Range is dependent on time and content of last meal. Glucose of more than 200 mg/dL in a nonstressed, ambulatory subject supports the diagnosis of Diabetes Mellitus. ADA recommended reference range Performed By: #### C BC, CMP, LIPID, PSATF #### [facility] [address] [place] [address] [place] Potassium [Moles/Vol] 4.8 mmol/L Normal 3.5-5.1 [facility] Comment on above: Order Comment: Reaso n for Exam Elevated liver enzymes Performed By: #### C BC, CMP, LIPID, PSATF #### [facility] [address] [place] [address] Protein [Mass/Vol] 6.5 g/dL Normal 6.1-7.9 [facility] Comment on above: Order Comment: Reaso n for Exam Elevated liver enzymes Performed By: #### C BC, CMP, LIPID, PSATF #### [facility] [address] [place] [address] Sodium [Moles/Vol] 140 mmol/L Normal 136-146 [facility] Comment on above: Order Comment: Reaso n for Exam Elevated liver enzymes Performed By: #### C BC, CMP, LIPID, PSATF #### [address] Urea nitrogen [Mass/Vol] 15 mg/dL Normal 9-23 [facility] Comment on above: Order Comment: Reaso n for Exam Elevated liver enzymes Performed By: #### C BC, CMP, LIPID, PSATF #### [facility] [address] [place] [address] Lipid Panelon 02-07-2022 Cholesterol [Mass/Vol] 179 mg/dL Normal 140-200 [facility] Comment on above: Order Comment: Reaso n for Exam Elevated liver enzymes Result Comment: Chol less than 200 mg/dl low risk Chol 201-239 mg/dl borderline risk Chol 240 mg/dl and greater high risk Performed By: #### C BC, CMP, LIPID, PSATF #### [facility] [address] [place] [address] Cholesterol in HDL [Mass/Vol] 33 mg/dL Normal 29-71 [facility] Comment on above: Order Comment: Reaso n for Exam Elevated liver enzymes Result Comment: HDL CHOL ATP-III CLASSIFICATION Cardiovascular Risk HDL > or equal to 60 mg/dL LOW HDL < 40 mg/dL HIGH Performed By: #### C BC, CMP, LIPID, PSATF #### [facility] [address] [place] [address] Cholesterol.total/Ch olesterol in HDL [Mass ratio] 5.4 {ratio} Normal <5.0 [facility] Comment on above: Order Comment: Reaso n for Exam Elevated liver enzymes Result Comment: PERF ORMED BY: [place] [address] PATHOLOGIST FIRE BOSS JONY CRISTOBAL M.D. Performed By: #### C BC, CMP, LIPID, PSATF #### [address] LDL Cholesterol,Calculat ed 113 mg/dL High 0-100 [facility] Comment on above: Order Comment: Reaso n for Exam Elevated liver enzymes Result Comment: LDL ATP III CLASSIFICATION LDL less than 100 mg/dL Optimal LDL 100-129 mg/dL Near or above optimal LDL 130-159 mg/dL Borderline high LDL 160-189 mg/dL High LDL greater than 189 mg/dL Very high Performed By: #### C BC, CMP, LIPID, PSATF #### [address] Triglyceride w/Reflex 166 mg/dL High 35-149 [facility] Comment on above: Order Comment: Reaso n for Exam Elevated liver enzymes Result Comment: TRIG ATP III CLASSIFICATION TRIG less than 150 mg/dL Normal TRIG 150-199 mg/dL Borderline high TRIG 200-500 mg/dL High TRIG greater than 500 mg/dL Very high Standard traceable to the Center for Disease Conrtrol and Prevention (CDC) test method. Performed By: #### C BC, CMP, LIPID, PSATF #### [facility] [address] [place] [address] VLDL CHOLESTEROL 33 mg/dL Normal [facility] Comment on above: Order Comment: Reaso n for Exam Elevated liver enzymes Performed By: #### C BC, CMP, LIPID, PSATF #### [facility] [address] [place] [address] PSA Diagnostic (Total Free)o n 02-07-2022 Prostate Spec Ag, Free 0.880 ng/mL Normal [facility] Comment on above: Order Comment: Reaso n for Exam Elevated PSA Performed By: #### C BC, CMP, LIPID, PSATF #### [place] [address] [place] PSA Total (Not a Screen) 3.410 ng/mL Normal 0.000-4.000 [facility] Comment on above: Order Comment: Reaso n for Exam Elevated PSA Performed By: #### C BC, CMP, LIPID, PSATF #### [facility] [address] [place] [address] PSA,FREE% 25.0 % Normal [facility] Comment on above: Order Comment: Reaso n for Exam Elevated PSA Result Comment: Base d on the work of Archana et al.MAURI. 27919):1542:47.1998 the percent free PSA may be used to determine the relative risk of prostate cancer in individual men.The percent probability of prostate cancer by patient age for men with non-suspicious TED results and total PSa between 4 and 10 ng/ml is as follows: % Free PSA 50 - 64 yrs. 65 - 75 yrs. 0 - 10 56% 55% 10 - 15 24% 35% 15 - 20 17% 23% 20 - 25 10% 20% >25 5% 9% PERFORMED BY: [place] [address] PATHOLOGIST FIRE BOSS JONY CRISTOBAL M.D. Performed By: #### C BC, CMP, LIPID, PSATF #### [facility] [address] [place] [address] [place] liveron 01-09-2022 liver [facility] [place] [address] Ultrasound Report Signed Patient: Javier Gudino MR#: [id number] : 1975 Acct:[id number] Age/Sex: 46 / M ADM Date: 01/09/22 Loc: Room: Type: [facility] Attending Dr: Malathi DUVAL Ordering Provider: MUKUND Rivas Date of Service: 01/09/22 US/US liver: Elevated liver enzymes Copies to: MUKUND Rivas Right upper quadrant abdominal ultrasound 01/09/2022. CLINICAL DATA: Elevated liver function tests. TECHNIQUE: Duplex sonographic evaluation of the right upper quadrant of the abdomen was performed. FINDINGS: The liver demonstrates normal size and echogenicity. No focal hepatic lesion is identified. Color Doppler and spectral waveform analysis reveal hepatopetal flow in the main portal vein. No sludge or calculus is seen in the gallbladder. No abnormal thickening of the gallbladder wall or pericholecystic fluid is noted. A sonographic Ozuna's sign was not observed. The common bile duct is not dilated. The pancreas is predominantly obscured by overlying bowel gas. There is no right hydronephrosis. US/US liver IMPRESSION: Unremarkable right upper quadrant abdominal ultrasound. Impression dictated by: Johnson Ramirez Jr., M.D.01/09/2022 11:55 AM Dictation Location: [place] [address] Tech: Mi Julien Transcribed By: CRESCENCIO 01/09/22 115 Dictated By: Johnson Ramirez Jr, MD 01/09/221151 Signed By: 01/09/22 1155 Normal [facility] Complete Blood Count Auto Di ffon 11-01-2021 Basophils (Bld) [#/Vol] 0.0 10*3/uL Normal 0.0-0.2 [facility] Comment on above: Order Comment: Reaso n for Exam Well adult health check Result Comment: PERF ORMED BY: [place] [address] PATHOLOGIST FIRE BOSS JONY CRISTOBAL M.D. Performed By: #### P SAS, CBC, THYROID SC, LIPID, CMP #### [facility] [address] [place] [address] Basophils/100 WBC (Bld) 0.4 % Normal . [facility] Comment on above: Order Comment: Reaso n for Exam Well adult health check Performed By: #### P SAS, CBC, THYROID SC, LIPID, CMP #### [facility] [address] Eosinophils (Bld) [#/Vol] 0.1 10*3/uL Normal 0.0-0.45 [facility] Comment on above: Order Comment: Reaso n for Exam Well adult health check Performed By: #### P SAS, CBC, THYROID SC, LIPID, CMP #### [address] Eosinophils/100 WBC (Bld) 1.8 % Normal . [facility] Comment on above: Order Comment: Reaso n for Exam Well adult health check Performed By: #### P SAS, CBC, THYROID SC, LIPID, CMP #### [address] Erythrocyte distribution width (RBC) [Ratio] 12.7 % Normal 12.0-14.8 [facility] Comment on above: Order Comment: Reaso n for Exam Well adult health check Performed By: #### P SAS, CBC, THYROID SC, LIPID, CMP #### [address] Hematocrit (Bld) [Volume fraction] 46.9 % Normal 38.8-50.0 [facility] Comment on above: Order Comment: Reaso n for Exam Well adult health check Performed By: #### P SAS, CBC, THYROID SC, LIPID, CMP #### [address] Hemoglobin (Bld) [Mass/Vol] 16.3 g/dL Normal 13.0-17.0 [facility] Comment on above: Order Comment: Reaso n for Exam Well adult health check Performed By: #### P SAS, CBC, THYROID SC, LIPID, CMP #### [address] Lymphocytes (Bld) [#/Vol] 1.8 10*3/uL Normal 1.00-4.8 [facility] Comment on above: Order Comment: Reaso n for Exam Well adult health check Performed By: #### P SAS, CBC, THYROID SC, LIPID, CMP #### [address] Lymphocytes/100 WBC (Bld) 29.6 % Normal . [facility] Comment on above: Order Comment: Reaso n for Exam Well adult health check Performed By: #### P SAS, CBC, THYROID SC, LIPID, CMP #### [address] MCH (RBC) [Entitic mass] 32.2 pg Normal 27.5-35.2 [facility] Comment on above: Order Comment: Reaso n for Exam Well adult health check Performed By: #### P SAS, CBC, THYROID SC, LIPID, CMP #### [facility] [address] MCV (RBC) [Entitic vol] 92.8 fL Normal 83.5-101 [facility] Comment on above: Order Comment: Reaso n for Exam Well adult health check Performed By: #### P SAS, CBC, THYROID SC, LIPID, CMP #### [facility] [address] Mean Corpuscular HGB Conc 34.7 g/dL Normal 32.5-35.6 [facility] Comment on above: Order Comment: Reaso n for Exam Well adult health check Performed By: #### P SAS, CBC, THYROID SC, LIPID, CMP #### [facility] [address] [place] [address] [place] Monocytes (Bld) [#/Vol] 0.4 10*3/uL Normal 0.0-0.8 [facility] Comment on above: Order Comment: Reaso n for Exam Well adult health check Performed By: #### P SAS, CBC, THYROID SC, LIPID, CMP #### [place] [address] [place] Monocytes/100 WBC (Bld) 7.2 % Normal . [facility] Comment on above: Order Comment: Reaso n for Exam Well adult health check Performed By: #### P SAS, CBC, THYROID SC, LIPID, CMP #### [facility] [address] [place] [address] [place] Neutrophils (Bld) [#/Vol] 3.8 10*3/uL Normal 1.8-7.7 [facility] Comment on above: Order Comment: Reaso n for Exam Well adult health check Performed By: #### P SAS, CBC, THYROID SC, LIPID, CMP #### [facility] [address] [place] [address] [place] Neutrophils/100 WBC (Bld) 61.0 % Normal . [facility] Comment on above: Order Comment: Reaso n for Exam Well adult health check Performed By: #### P SAS, CBC, THYROID SC, LIPID, CMP #### [facility] [address] Nucleated RBC/100 WBC (Bld) [Ratio] 0.1 % Normal 0-0.5 [facility] Comment on above: Order Comment: Reaso n for Exam Well adult health check Performed By: #### P SAS, CBC, THYROID SC, LIPID, CMP #### [facility] [address] Platelet mean volume (Bld) [Entitic vol] 8.7 fL Normal 6.6-10.1 [facility] Comment on above: Order Comment: Reaso n for Exam Well adult health check Performed By: #### P SAS, CBC, THYROID SC, LIPID, CMP #### [facility] [address] Platelets (Bld) [#/Vol] 244 10*3/uL Normal 150-450 [facility] Comment on above: Order Comment: Reaso n for Exam Well adult health check Performed By: #### P SAS, CBC, THYROID SC, LIPID, CMP #### [facility] [address] [place] [address] RBC (Bld) [#/Vol] 5.05 10*6/uL Normal 3.90-5.60 [facility] Comment on above: Order Comment: Reaso n for Exam Well adult health check Performed By: #### P SAS, CBC, THYROID SC, LIPID, CMP #### [facility] [address] WBC (Bld) [#/Vol] 6.2 10*3/uL Normal 4.5-11.0 [facility] Comment on above: Order Comment: Reaso n for Exam Well adult health check Performed By: #### P SAS, CBC, THYROID SC, LIPID, CMP #### [facility] [address] Comprehensive Metabolic Pane jayda 11-01-2021 Albumin [Mass/Vol] 4.3 g/dL Normal 3.2-5.5 [facility] Comment on above: Order Comment: Reaso n for Exam Well adult health check Performed By: #### P SAS, CBC, THYROID SC, LIPID, CMP #### [address] Albumin/Globulin [Mass ratio] 1.7 {ratio} Normal [facility] Comment on above: Order Comment: Reaso n for Exam Well adult health check Performed By: #### P SAS, CBC, THYROID SC, LIPID, CMP #### [facility] [address] ALP [Catalytic activity/Vol] 100 U/L High 32-92 [facility] Comment on above: Order Comment: Reaso n for Exam Well adult health check Performed By: #### P SAS, CBC, THYROID SC, LIPID, CMP #### [address] ALT [Catalytic activity/Vol] 61 U/L High 10-60 [facility] Comment on above: Order Comment: Reaso n for Exam Well adult health check Performed By: #### P SAS, CBC, THYROID SC, LIPID, CMP #### [address] AST [Catalytic activity/Vol] 27 U/L Normal 10-42 [facility] Comment on above: Order Comment: Reaso n for Exam Well adult health check Performed By: #### P SAS, CBC, THYROID SC, LIPID, CMP #### [address] Bilirubin [Mass/Vol] 1.3 mg/dL High 0.3-1.2 [facility] Comment on above: Order Comment: Reaso n for Exam Well adult health check Result Comment: Samp les from patients who have taken Naproxen have shown spurious elevation in Total Bilirubin levels. A metabolite of Naproxen, O-desmethylnaproxen, has been shown to interfere with the Jendrassik-Grof method for measuring Total Bilirubin. Performed By: #### P SAS, CBC, THYROID SC, LIPID, CMP #### [address] [place] [address] [place] Calcium [Mass/Vol] 9.5 mg/dL Normal 8.2-10.2 [facility] Comment on above: Order Comment: Reaso n for Exam Well adult health check Performed By: #### P SAS, CBC, THYROID SC, LIPID, CMP #### [address] Chloride [Moles/Vol] 106 mmol/L Normal 95-114 [facility] Comment on above: Order Comment: Reaso n for Exam Well adult health check Performed By: #### P SAS, CBC, THYROID SC, LIPID, CMP #### [address] CO2 [Moles/Vol] 25.0 mmol/L Normal 22.0-30.[address] [facility] Comment on above: Order Comment: Reaso n for Exam Well adult health check Performed By: #### P SAS, CBC, THYROID SC, LIPID, CMP #### [address] Creatinine [Mass/Vol] 1.04 mg/dL Normal 0.64-1.27 [facility] Comment on above: Order Comment: Reaso n for Exam Well adult health check Performed By: #### P SAS, CBC, THYROID SC, LIPID, CMP #### [address] Estimated GFR ( Donna > 60 [facility] Comment on above: Order Comment: Reaso n for Exam Well adult health check Result Comment: GFR estimated reference range: According to KDOQI guidelines, <60 ml/min/1.73m2 is sufficient to diagnose a patient with chronic kidney disease. Performed By: #### P SAS, CBC, THYROID SC, LIPID, CMP #### [address] Estimated GFR (Non- Am > 60 [facility] Comment on above: Order Comment: Reaso n for Exam Well adult health check Performed By: #### P SAS, CBC, THYROID SC, LIPID, CMP #### [address] Globulin (S) [Mass/Vol] 2.6 g/dL Normal [facility] Comment on above: Order Comment: Reaso n for Exam Well adult health check Performed By: #### P SAS, CBC, THYROID SC, LIPID, CMP #### [facility] [address] Glucose [Mass/Vol] 92 mg/dL Normal 70-100 [facility] Comment on above: Order Comment: Reaso n for Exam Well adult health check Result Comment: [facility] Glucose Reference Range is dependent on time and content of last meal. Glucose of more than 200 mg/dL in a nonstressed, ambulatory subject supports the diagnosis of Diabetes Mellitus. ADA recommended reference range Performed By: #### P SAS, CBC, THYROID SC, LIPID, CMP #### [facility] [address] Potassium [Moles/Vol] 4.5 mmol/L Normal 3.5-5.1 [facility] Comment on above: Order Comment: Reaso n for Exam Well adult health check Performed By: #### P SAS, CBC, THYROID SC, LIPID, CMP #### [facility] [address] Protein [Mass/Vol] 6.9 g/dL Normal 6.1-7.9 [facility] Comment on above: Order Comment: Reaso n for Exam Well adult health check Performed By: #### P SAS, CBC, THYROID SC, LIPID, CMP #### [facility] [address] [place] [address] [place] Sodium [Moles/Vol] 140 mmol/L Normal 136-146 [facility] Comment on above: Order Comment: Reaso n for Exam Well adult health check Performed By: #### P SAS, CBC, THYROID SC, LIPID, CMP #### [facility] [address] Urea nitrogen [Mass/Vol] 15 mg/dL Normal 9-23 [facility] Comment on above: Order Comment: Reaso n for Exam Well adult health check Performed By: #### P SAS, CBC, THYROID SC, LIPID, CMP #### [facility] [address] Lipid Panelon 11-01-2021 Cholesterol [Mass/Vol] 203 mg/dL High 140-200 [facility] Comment on above: Order Comment: José Manuelo n for Exam Well adult health check Result Comment: Chol less than 200 mg/dl low risk Chol 201-239 mg/dl borderline risk Chol 240 mg/dl and greater high risk Performed By: #### P SAS, CBC, THYROID SC, LIPID, CMP #### [facility] [address] Cholesterol in HDL [Mass/Vol] 42 mg/dL Normal 29-71 [facility] Comment on above: Order Comment: José Manuelo n for Exam Well adult health check Result Comment: HDL CHOL ATP-III CLASSIFICATION Cardiovascular Risk HDL > or equal to 60 mg/dL LOW HDL < 40 mg/dL HIGH Performed By: #### P SAS, CBC, THYROID SC, LIPID, CMP #### [facility] [address] Cholesterol.total/Ch olesterol in HDL [Mass ratio] 4.8 {ratio} Normal <5.0 [facility] Comment on above: Order Comment: José Manuelo n for Exam Well adult health check Performed By: #### P SAS, CBC, THYROID SC, LIPID, CMP #### [facility] [address] LDL Cholesterol,Calculat ed 128 mg/dL High 0-100 [facility] Comment on above: Order Comment: José Manuelo n for Exam Well adult health check Result Comment: LDL ATP III CLASSIFICATION LDL less than 100 mg/dL Optimal LDL 100-129 mg/dL Near or above optimal LDL 130-159 mg/dL Borderline high LDL 160-189 mg/dL High LDL greater than 189 mg/dL Very high Performed By: #### P SAS, CBC, THYROID SC, LIPID, CMP #### [facility] [address] Triglyceride w/Reflex 166 mg/dL High 35-149 [facility] Comment on above: Order Comment: José Manuelo n for Exam Well adult health check Result Comment: TRIG ATP III CLASSIFICATION TRIG less than 150 mg/dL Normal TRIG 150-199 mg/dL Borderline high TRIG 200-500 mg/dL High TRIG greater than 500 mg/dL Very high Standard traceable to the Center for Disease Conrtrol and Prevention (CDC) test method. Performed By: #### P SAS, CBC, THYROID SC, LIPID, CMP #### [address] VLDL CHOLESTEROL 33 mg/dL Normal [facility] Comment on above: Order Comment: Reaso n for Exam Well adult health check Performed By: #### P SAS, CBC, THYROID SC, LIPID, CMP #### [address] PSA Screen (Yearly Only)on 0 11-01-2021 PSA Screen (Yearly Only) 4.460 ng/mL High 0.000-4.000 [facility] Comment on above: Order Comment: Reaso n for Exam Well adult health check Result Comment: PERF ORMED BY: [place] [address] PATHOLOGIST [employer] JONY CRISTOBAL M.D. Performed By: #### P SAS, CBC, THYROID SC, LIPID, CMP #### [address] THYROID SCREENon 11-01-2021 Free T4 [Mass/Vol] 1.00 ng/dL Normal 0.61-1.12 [facility] Comment on above: Order Comment: Reaso n for Exam Well adult health check Performed By: #### P SAS, CBC, THYROID SC, LIPID, CMP #### [address] TSH Qn 0.58 m[IU]/L Normal 0.45-5.33 [facility] Comment on above: Order Comment: Reaso n for Exam Well adult health check Result Comment: PERF ORMED BY: [place] [address] PATHOLOGIST [employer] JONY CRISTOBAL M.D. Performed By: #### P SAS, CBC, THYROID SC, LIPID, CMP #### [address] [place] 06-03-2020 Consent [id number]# 1.00CD:127 Normal [facility] Registrationon 06-03-2020 Registration [id number]# 1.00CD:127 Normal [facility] Encounters Encounter Date Encounter Type Care Provider Facility Start: 06-17-2024 End: 06-17-2024 ambulatory DO Jamie Oviedo Work Phone: [facility] Work Phone: Start: 06-17-2024 End: 06-17-2024 Departed Referred DO Jamie Oviedo Work Phone: [facility] Payers Date Payer Category Payer Policy ID Self-pay Self Pay [id number] Unknown MMO [id number] [id number] Unknown [place] BC/BS [id number] 03 [id number] Social History Date Type Detail Facility Tobacco smoking stat [facility] Unknown if ever smoked [facility] Work Phone: Start: 1975 Sex Assigned At Male F [facility] Evaluation note Note Date & Type Note Facility Evaluation note No assessment information availa ble [facility] Work Phone: Summary Purpose Family History No Family History Records FoundNo Family History Records Found Advance Directives Advance Directive Response Recorded Date/ Time Advance Directives No November 08, 2021 2:40pm Additional Source Comments (unrecognized sect ion and content) No Status Records FoundNo Status Records Found INFORMATION SOURCE (unrecogn ized section and content) DATE CREATED AUTHOR 06/04/2020 [facility] DATE CREATED AUTHOR AUTHOR'S ORGANIZ ATION 02/12/2022 [facility] Care Teams (unrecognized sec tion and content) Team Status: Inactive Member Role Status Dates Jamie Oviedo DO Attending Provider Active Star t: June 17, 2024 End: June 17, 2024 Goals (unrecognized section and content) Goals may be documented in a n alternate section FOR RECORDS PERTAINING TO PATIENTS WHO ARE OR HAVE BEEN ENROLLED IN A CHEMICAL DEPENDENCY/SUBSTANCEABUSE PROGRAM, SOME INFORMATION MAY BE OMITTED. This clinical summary was aggregated from multiple sources. Caution should be exercised in using it in the provision of clinical care. This summary normalizes information from multiple sources, and as a consequence, information in this document may materially change the coding, format and clinical context of patient data. In addition, data may be omitted in some cases. CLINICAL DECISIONS SHOULD BE BASED ON THE PRIMARY CLINICAL RECORDS. [facility] [employer] [facility]. provides no warranty or guarantee of the accuracy or completeness of information in this document.
--- NOTE | 2024-06-18 14:15 | SWNOTE1 ---
[address] is able to accept. Jesusita from [facility] is coming to see pt. SW let pt know.
[2024-06-18] MEDS: PANTOPRAZOLE SODIUM 40 MG VIAL IV (16:00)
[2024-06-18] MEDS: ENOXAPARIN SODIUM 40 MG/0.4 ML SYRINGE SUBQ (21:42)
[2024-06-18] MEDS: ONDANSETRON PF 4 MG/2 ML VIAL IV (21:49)
[2024-06-19] VITALS (17 sets, daily range): BP systolic 111–145; BP diastolic 70–88; PULSE 54–76; TEMP 36.5–37.3; O2SAT 93–97
[2024-06-19] MEDS: LACTATED RINGER'S SOLUTION 1,000 ML 115 ML IV ×3 (00:22→19:00)
[2024-06-19] MEDS: KETOROLAC TROMETHAMINE 30 MG/ML VIAL IVP ×4 (00:22→23:14)
[2024-06-19] MEDS: HYDROMORPHONE HCL 0.5 MG/0.5 ML SYRINGE IV ×2 (03:41→10:40)
[2024-06-19] MEDS: METHOCARBAMOL 1,000 MG/10 ML VIAL 1000 MG IV ×3 (06:21→21:22)
[2024-06-19] MEDS: GABAPENTIN 100 MG CAPSULE PO ×2 (06:21→21:22)
[2024-06-19] MEDS: PIPERACILLIN SODIUM/TAZOBACTAM 3.375 GM in 0.9 % SODIUM CHLORIDE 50 ML IV ×3 (06:32→21:22)
[2024-06-19 06:39] LABS: Basophils Percent Auto 0.4 % (0.2-2.0); Eosinophils Percent Auto 0.4 % (0.9-7.0); Hematocrit 36.4 % (42.0-54.0); Hemoglobin 12.5 g/dL (14.0-18.0); Immature Granulocytes Abs Auto 0.05 10^3/uL (0.00-0.03); Immature Granulocytes Pct Auto 0.6 % (0.0-0.5); Lymphocytes Absolute Auto 1.1 10^3/uL (1.2-3.8); Lymphocytes Percent Auto 12.5 % (20.5-60.0); Mean Corpuscular HGB Conc 34.3 g/dL (29.9-35.2); Mean Corpuscular Hemoglobin 32.6 pg (25.9-34.0); Mean Platelet Volume 10.2 fL (9.5-13.5); Monocytes Absolute Auto 0.8 10^3/uL (0.3-0.8); Monocytes Percent Auto 9.1 % (1.7-12.0); Neutrophils Absolute Auto 6.6 10^3/uL (1.4-6.5); Platelet Count 202 10^3/uL (150-450); Red Blood Count 3.83 10^6/uL (4.70-6.10); Red Cell Distribution Width 11.9 % (11.0-15.0); White Blood Count 8.5 10^3/uL (4.0-11.0)
[2024-06-19 06:49] LABS: Alanine Aminotransferase 27 U/L (16-63); Albumin Globulin Ratio 0.6; Albumin Level 2.2 g/dL (3.4-5.0); Alkaline Phosphatase 114 U/L (46-116); Aspartate Amino Transferase 17 U/L (15-37); BUN Creatinine Ratio 20.5; Bilirubin Total 2.7 mg/dL (0.2-1.0); Calcium 8.5 mg/dL (8.5-10.1); Carbon Dioxide 25.8 mmol/L (21.0-32.0); Chloride 106 mmol/L (98-107); Estimated GFR (African America >60 (>=60); Estimated GFR (Non-African Ame >60 (>=60); Globulin 3.4 g/dL; Glucose 83 mg/dL (74-106); Potassium 3.8 mmol/L (3.5-5.1); Sodium 140 mmol/L (136-145); Total Protein 5.6 g/dL (6.4-8.2)
--- NOTE | 2024-06-19 10:21 | CM.NOTE ---
Rounds made with Dr. Tejeda. Mr. Gudino frustrated with current symptoms. Dr. Tejeda discussed plan of care and answered all questions.
--- NOTE | 2024-06-19 11:00 | PM.IMPN1 ---
Progress Note: A&P Assessment and Plan (1) Perforated sigmoid colon: Assessment and Plan: Status post colectomy with colostomy formation. No acute events. Still strictly NPO. Postoperative care as per general surgery. Pain is reasonably controlled. (2) Abdominal pain: Assessment and Plan: Due to perforated sigmoid diverticulitis. Status post colectomy with colostomy formation. Qualifiers: Abdominal location: left lower quadrant Qualified Code(s): R10.32 - Left lower quadrant pain Internal Medicine - PN: Subj Subjective Interval history: Seen and examined. No overnight events. Still NPO. Appears a little anxious about his current illness. Exam Constitutional Vital Signs, click to edit/add: Last Vital Signs Temp 98.2 F 06/19/24 08:00 Pulse 65 06/19/24 09:55 Resp 16 06/19/24 08:00 BP 138/82 06/19/24 08:00 Pulse Ox 94 L 06/19/24 08:00 O2 Del Method Room Air 06/19/24 08:00 Documenting provider has reviewed patient's vital signs: yes Common normals: no apparent distress and oriented x3 General appearance: cooperative Respiratory Common normals: normal respiratory effort and clear to auscultation bilaterally Effort & inspection: able to speak in complete sentences Auscultation: clear to auscultation bilaterally Cardio Common normals: regular rate, S1 normal heart sound and S2 normal heart sound Rate: regular rate Heart sounds: S1 normal and S2 normal GI Common normals: soft to palpation and no hepatosplenomegaly Other: post op dressing from laparotomy. Has colostomy in place. Extremity Common normals: no clubbing, cyanosis or edema Neuro Common normals: oriented x3, moves all extremities and no focal motor deficits Psych Common normals: mental status grossly normal, denies hallucinations, denies homicidal ideation and denies suicidal ideation Internal Medicine - PN: Obj Da Labs Labs: Laboratory Results - last 24 hr 06/19/24 06:02 WBC 8.5 RBC 3.83 L Hgb 12.5 L Hct 36.4 L MCV 95.0 H MCH 32.6 MCHC 34.3 RDW 11.9 Plt Count 202 MPV 10.2 Neut % (Auto) 77.0 H Lymph % (Auto) 12.5 L [place] % (Auto) 9.1 Eos % (Auto) 0.4 L Baso % (Auto) 0.4 Neut # (Auto) 6.6 H Lymph # (Auto) 1.1 L [place] # (Auto) 0.8 Eos # (Auto) 0.0 Baso # (Auto) 0.0 Abs Immat Gran (auto) 0.05 H Imm/Tot Granulo (auto) 0.6 H Sodium 140 Potassium 3.8 Chloride 106 Carbon Dioxide 25.8 Anion Gap 12.0 BUN 18.0 Creatinine 0.88 Est GFR ( Amer) >60 Est GFR (Non-Af Amer) >60 BUN/Creatinine Ratio 20.5 Glucose 83 Calcium 8.5 Total Bilirubin 2.7 H AST 17 ALT 27 Alkaline Phosphatase 114 Total Protein 5.6 L Albumin 2.2 L Globulin 3.4 Albumin/Globulin Ratio 0.6 Urinary Catheter Management Urinary Catheter Management Urethral: Cath placed during this visit: no Urethral indwelling: Yes
--- NOTE | 2024-06-19 11:49 | PM.GSPN ---
Progress Note: A&P Assessment and Plan (1) Perforated sigmoid colon: Assessment and Plan: s/p 06/17/24 ex lap, sigmoidectomy and end colostomy creation Strict NPO, if has emesis place NGT to LIWS, monitor ostomy output and stoma appearance, + gas in bag, will plan on starting clears later this evening or tomorrow if continues to have gas in the ostomy bag IV meds for pain and muscle spasms encourage ambulation and up in chair, continue hourly incentive spirometry use PT/OT referral Consult wound ostomy team for education Gentle IV fluids, want to avoid bowel edema, sol removed 06/18 (2) Abdominal pain: Qualifiers: Abdominal location: left lower quadrant Qualified Code(s): R10.32 - Left lower quadrant pain Subjective Subjective Interval history: No acute complaints. Patient states he is doing ok today, slightly better then yesterday. + gas in ostomy bag, no stool. Denies nausea or emesis. Still very sore but getting up in chair and ambulating some. Using his IS. Discussed plan of going slow with advancement of diet. Exam Narrative Exam Narrative: General: awake, alert, no distress Head: normocephalic, atraumatic Neck: supple, no tracheal deviation Heart: RRR Lungs: equal chest rise and fall, non labored breathing Abdomen: soft, appropriate tenderness, no rebound or guarding, left sided ostomy pink and patent, bowel sweat noted in bag, midline incision c/d/i, dressing dressing changed Extremities: no lesions, grossly normal Skin: intact, no cyanosis Psychological: no apparent speech or mood disorder, appropriate for encounter Constitutional Vital Signs, click to edit/add: Last Vital Signs Temp 98.2 F 06/19/24 08:00 Pulse 65 06/19/24 09:55 Resp 16 06/19/24 08:00 BP 138/82 06/19/24 08:00 Pulse Ox 94 L 06/19/24 11:20 O2 Del Method Room Air 06/19/24 11:20 Urinary Catheter Management Urinary Catheter Management Urethral: Cath placed during this visit: no Urethral indwelling: Yes
--- NOTE | 2024-06-19 12:36 | REH.PTDLY ---
Physical Therapy Daily Note PT Daily Note/Assess Start: 06/19/24 12:29 Freq: Status: Active Protocol: Document 06/19/24 10:40 STEPHANIE (Rec: 06/19/24 12:36 STEPHANIE [id number]) Physical Therapy Daily Note/Assessment Time In 10:25 Time Out 10:40 Subjective Pt reports pain of 5/10. When gas pains hit it is almost unbearable, pain gets really high. Therapeutic Activity Minutes (minutes) 15 Therapeutic Activity Units 1 Bed Mobility Ability Modified Independent Chair Transfer Ability Standby Assistance Therapeutic Activity Comments Pt performs bed mobility mod I with use of guard rails and pt moving very slowly, cues for log rolling. Sit to stand transfers SBA using pillow to brace abdomen. Gait training with no AD and pt continuing to hold pillow to abdomen 350 feet SBA with slow guarded pace. Pt takes small steps at first, then is able to ambulate with larger strides, but then gas pains set in and pt goes back to small guarded gait. Pt reports he is very fatigued after. Total Therapy Minutes 15 Total Physical Therapy Units 1 Daily Note Summary Pt able to ambulate far distance, however takes smaller strides and is very guarded. Pt has increased fatigue after. Pt is able to transfer in and out of bed SBA . See patient 1 more time to make sure he does not have set back after ambulating far distance and to assure greater independence
--- NOTE | 2024-06-19 13:10 | SWNOTE1 ---
Physician note and PT/OT note from today send to [address], along with general surgery progess note.
--- NOTE | 2024-06-19 14:04 | W.PM.WC ---
Wound Consult Note Assessment and Plan (1) Perforated sigmoid colon: Reason for Consult: Ostomy care and education (2) Abdominal pain: Qualifiers: Abdominal location: left lower quadrant Qualified Code(s): R10.32 - Left lower quadrant pain Plan Patient in bed sleeping. Bedside RN recently gave patient pain medication and states people have been in and out all day. Will let patient rest at this time. Will return tomorrow for pouch change and continued education. Told bedside RN to let patient know I stopped by to check in but did not want to wake him. Encouraged him or staff to call with any questions or concerns. Ethan Lowry, PRINCESS, CWON
[2024-06-19] MEDS: PANTOPRAZOLE SODIUM 40 MG VIAL IV (15:08)
[2024-06-19] MEDS: ENOXAPARIN SODIUM 40 MG/0.4 ML SYRINGE SUBQ (21:22)
[2024-06-20] VITALS (13 sets, daily range): BP systolic 109–153; BP diastolic 72–86; PULSE 38–65; TEMP 36.4–37.1; O2SAT 93–98
[2024-06-20] MEDS: HYDROMORPHONE HCL 0.5 MG/0.5 ML SYRINGE IV (05:28)
[2024-06-20] MEDS: METHOCARBAMOL 1,000 MG/10 ML VIAL 1000 MG IV (05:28)
[2024-06-20] MEDS: PIPERACILLIN SODIUM/TAZOBACTAM 3.375 GM in 0.9 % SODIUM CHLORIDE 50 ML IV ×3 (05:29→21:26)
[2024-06-20] MEDS: GABAPENTIN 100 MG CAPSULE PO ×3 (05:29→21:26)
[2024-06-20] MEDS: LACTATED RINGER'S SOLUTION 1,000 ML 100 ML IV (05:29)
[2024-06-20 05:49] LABS: Basophils Percent Auto 0.5 % (0.2-2.0); Eosinophils Absolute Auto 0.1 10^3/uL (0.0-0.7); Eosinophils Percent Auto 1.1 % (0.9-7.0); Hematocrit 34.4 % (42.0-54.0); Hemoglobin 11.6 g/dL (14.0-18.0); Immature Granulocytes Abs Auto 0.03 10^3/uL (0.00-0.03); Immature Granulocytes Pct Auto 0.4 % (0.0-0.5); Lymphocytes Percent Auto 13.7 % (20.5-60.0); Mean Corpuscular HGB Conc 33.7 g/dL (29.9-35.2); Mean Corpuscular Hemoglobin 31.7 pg (25.9-34.0); Mean Platelet Volume 9.6 fL (9.5-13.5); Monocytes Absolute Auto 0.7 10^3/uL (0.3-0.8); Monocytes Percent Auto 9.6 % (1.7-12.0); Neutrophils Absolute Auto 5.6 10^3/uL (1.4-6.5); Neutrophils Percent Auto 74.7 % (43.0-75.0); Platelet Count 214 10^3/uL (150-450); Red Blood Count 3.66 10^6/uL (4.70-6.10); Red Cell Distribution Width 11.7 % (11.0-15.0); White Blood Count 7.5 10^3/uL (4.0-11.0)
[2024-06-20 06:03] LABS: Alanine Aminotransferase 25 U/L (16-63); Albumin Globulin Ratio 0.6; Alkaline Phosphatase 141 U/L (46-116); Anion Gap 10.7; Aspartate Amino Transferase 17 U/L (15-37); BUN Creatinine Ratio 21.6; Bilirubin Total 2.4 mg/dL (0.2-1.0); Calcium 8.6 mg/dL (8.5-10.1); Carbon Dioxide 25.9 mmol/L (21.0-32.0); Chloride 107 mmol/L (98-107); Estimated GFR (African America >60 (>=60); Estimated GFR (Non-African Ame >60 (>=60); Globulin 3.4 g/dL; Glucose 91 mg/dL (74-106); Potassium 3.6 mmol/L (3.5-5.1); Sodium 140 mmol/L (136-145); Total Protein 5.4 g/dL (6.4-8.2)
[2024-06-20] MEDS: KETOROLAC TROMETHAMINE 30 MG/ML VIAL IVP ×3 (09:03→23:09)
--- NOTE | 2024-06-20 10:31 | CM.NOTE ---
Rounds made with Dr. Tejeda. Dr. Tejeda explains diverticulitis/diverticulosis to Mr. Gudino and answers any questions he has regarding the diagnosis. Continue with current treatment plan.
--- NOTE | 2024-06-20 10:34 | PM.IMPN1 ---
Progress Note: A&P Assessment and Plan (1) Perforated sigmoid colon: Assessment and Plan: Status post colectomy and colostomy. Pain is reasonably controlled. Now advance to clear liquid diet. He had a small bowel movement yesterday. Further care as per general surgery. (2) Abdominal pain: Assessment and Plan: Due to perforated sigmoid diverticulitis. Status post colectomy with colostomy formation. Qualifiers: Abdominal location: left lower quadrant Qualified Code(s): R10.32 - Left lower quadrant pain Internal Medicine - PN: Subj Subjective Interval history: Seen and examined. Had a small bowel movement overnight. Tolerating clear liquid diet now. Was reporting worse abdominal pain but he had just participated in physical therapy that aggravated his pain Exam Constitutional Vital Signs, click to edit/add: Last Vital Signs Temp 97.5 F L 06/20/24 09:15 Pulse 65 06/20/24 09:53 Resp 18 06/20/24 09:15 BP 144/83 H 06/20/24 09:15 Pulse Ox 93 L 06/20/24 09:15 O2 Del Method Room Air 06/20/24 09:15 Documenting provider has reviewed patient's vital signs: yes Common normals: no apparent distress and oriented x3 General appearance: cooperative Respiratory Common normals: normal respiratory effort and clear to auscultation bilaterally Effort & inspection: able to speak in complete sentences Auscultation: clear to auscultation bilaterally Cardio Common normals: regular rate, S1 normal heart sound and S2 normal heart sound Rate: regular rate Heart sounds: S1 normal and S2 normal GI Common normals: soft to palpation and no hepatosplenomegaly Other: post op dressing from laparotomy. Has colostomy in place. Internal Medicine - PN: Obj Da Labs Labs: Laboratory Results - last 24 hr 06/20/24 05:24 WBC 7.5 RBC 3.66 L Hgb 11.6 L Hct 34.4 L MCV 94.0 MCH 31.7 MCHC 33.7 RDW 11.7 Plt Count 214 MPV 9.6 Neut % (Auto) 74.7 Lymph % (Auto) 13.7 L [place] % (Auto) 9.6 Eos % (Auto) 1.1 Baso % (Auto) 0.5 Neut # (Auto) 5.6 Lymph # (Auto) 1.0 L [place] # (Auto) 0.7 Eos # (Auto) 0.1 Baso # (Auto) 0.0 Abs Immat Gran (auto) 0.03 Imm/Tot Granulo (auto) 0.4 Sodium 140 Potassium 3.6 Chloride 107 Carbon Dioxide 25.9 Anion Gap 10.7 BUN 19.0 H Creatinine 0.88 Est GFR ( Amer) >60 Est GFR (Non-Af Amer) >60 BUN/Creatinine Ratio 21.6 Glucose 91 Calcium 8.6 Total Bilirubin 2.4 H AST 17 ALT 25 Alkaline Phosphatase 141 H Total Protein 5.4 L Albumin 2.0 L Globulin 3.4 Albumin/Globulin Ratio 0.6 Urinary Catheter Management Urinary Catheter Management Urethral: Cath placed during this visit: no Urethral indwelling: Yes
--- NOTE | 2024-06-20 10:52 | PM.GSPN ---
Progress Note: A&P Assessment and Plan (1) Perforated sigmoid colon: Assessment and Plan: s/p 06/17/24 ex lap, sigmoidectomy and end colostomy creation monitor ostomy output and stoma appearance, advance to FLD, if does well can go to soft diet later tonight or tomorrow AM 06/21 Switch to all PO meds including pain meds encourage ambulation and up in chair, continue hourly incentive spirometry use PT/OT referral Appreciate wound ostomy team for education Plan for discharge 06/21 am if patient continues to do well and tolerates PO intake with continued ostomy output F/U appointment 07/02/24 for staple removal Home health care for ostomy appliances (2) Abdominal pain: Qualifiers: Abdominal location: left lower quadrant Qualified Code(s): R10.32 - Left lower quadrant pain Subjective Subjective Interval history: Doing well today. + gas and stool in ostomy bag. Pain controlled with meds. Denies f/c, n/v, sob or chest pain. Tolerating CLD. Stoma nurse has been educating patient about ostomy care. Discussed with pt the plan for possible d/c tomorrow if he continues to do well and tolerates PO intake. Exam Narrative Exam Narrative: General: awake, alert, no distress Head: normocephalic, atraumatic Neck: supple, no tracheal deviation Heart: RRR Lungs: equal chest rise and fall, non labored breathing Abdomen: soft, appropriate tenderness, no rebound or guarding, left sided ostomy pink and patent, some liquid brown stool noted in bag, midline incision c/d/i, dressing dressing changed Extremities: no lesions, grossly normal Skin: intact, no cyanosis Psychological: no apparent speech or mood disorder, appropriate for encounter Constitutional Vital Signs, click to edit/add: Last Vital Signs Temp 97.5 F L 06/20/24 09:15 Pulse 65 06/20/24 09:53 Resp 18 06/20/24 09:15 BP 144/83 H 06/20/24 09:15 Pulse Ox 93 L 06/20/24 09:15 O2 Del Method Room Air 06/20/24 09:15 Urinary Catheter Management Urinary Catheter Management Urethral: Cath placed during this visit: no Urethral indwelling: Yes
[2024-06-20] MEDS: DOCUSATE SODIUM 100 MG CAPSULE PO (11:29)
[2024-06-20] MEDS: POLYETHYLENE GLYCOL 3350 17 GM POWDER PACKET PO (11:29)
--- NOTE | 2024-06-20 12:04 | SWNOTE1 ---
SW sent updates to [address], no discharge today. PT to be added to as well.
--- NOTE | 2024-06-20 12:17 | W.PM.WC ---
Wound Consult Note Assessment and Plan (1) Perforated sigmoid colon: Reason for Consult: Ostomy care and education (2) Abdominal pain: Qualifiers: Abdominal location: left lower quadrant Qualified Code(s): R10.32 - Left lower quadrant pain Plan Patient seen today for follow up on ostomy care and education. Patient with possible d/c tomorrow. Per note, MED [facility] is going to follow the patient once discharged. Educated patient on daily care of ostomy pouch, removal, peristomal skin care, sizing of stoma, cutting appliance, applying stoma paste. Stomal assessment: Stoma type: End colostomy Location: LL/L mid-abdomen Size: 1 1/4 x 1 oval Stoma position: Buds slightly. mostly flush Stoma color: Moist, red and shiny Patient reports small bowel movement and has been passing gas frequently. Abdomen is appropriately softly distended due to surgery with midline post op dressing in place. Post op pouch removed. Peristomal skin intact without rash or breakdown. No pain to peristomal skin. Skin cleansed with warm water. Allowed to dry. Stoma sized and pouching appliance cut to slightly larger than stoma due to flush sitting. A bead of stoma paste applied and allowed to air dry for 20 seconds. Pouch applied and light hand pressure applied to assist with adherence. Patient was able to verbally re-teach pouch change back to me today. Appears to be more positive about diagnosis today. States Dr. Oviedo discussed reversal surgery time frame with him today. Patient was reminded of my contact information as well as ability to leave confidential voicemail at my extension. Verbalized understanding. Patient discussed changes in routine with working. Discussed accessories available (ex. stealth belt, etc) that he can look into to get when returning back to work. Patient is in agreement with me ordering sample kits from ostomy supply companies for him to try once he is home. Samples left with patient as well at bedside for him to take home until [facility] can help with ordering. Please call [phone] with any questions or concerns. Ethan Lowry RN, CWON
[2024-06-20] MEDS: ACETAMINOPHEN 500 MG TABLET 1000 MG PO ×2 (14:43→21:26)
[2024-06-20] MEDS: CYCLOBENZAPRINE HCL 10 MG TABLET PO ×2 (14:43→21:26)
[2024-06-20] MEDS: PANTOPRAZOLE SODIUM 40 MG VIAL IV (14:43)
[2024-06-20] MEDS: ENOXAPARIN SODIUM 40 MG/0.4 ML SYRINGE SUBQ (21:26)
--- NOTE | 2024-06-20 22:03 | PC.NURSE ---
RN spoke to Dr. Oviedo on the phone. increased patient to a GI soft diet for the morning. Also stated to discontinue to Zosyn and if patient tolerated the diet at breakfast, then he could be discharged home in the morning.
[2024-06-21] MEDS: ACETAMINOPHEN 500 MG TABLET 1000 MG PO (05:59)
[2024-06-21] MEDS: CYCLOBENZAPRINE HCL 10 MG TABLET PO (05:59)
[2024-06-21] MEDS: GABAPENTIN 100 MG CAPSULE PO (05:59)
[2024-06-21 06:00] VITALS: BP 152/92; PULSE 59; TEMP 36.4; O2SAT 94
[2024-06-21 06:31] LABS: Basophils Percent Auto 0.5 % (0.2-2.0); Eosinophils Absolute Auto 0.2 10^3/uL (0.0-0.7); Eosinophils Percent Auto 1.9 % (0.9-7.0); Hematocrit 35.6 % (42.0-54.0); Hemoglobin 12.2 g/dL (14.0-18.0); Immature Granulocytes Abs Auto 0.05 10^3/uL (0.00-0.03); Immature Granulocytes Pct Auto 0.6 % (0.0-0.5); Lymphocytes Absolute Auto 1.1 10^3/uL (1.2-3.8); Lymphocytes Percent Auto 14.2 % (20.5-60.0); Mean Corpuscular HGB Conc 34.3 g/dL (29.9-35.2); Mean Corpuscular Hemoglobin 31.9 pg (25.9-34.0); Mean Corpuscular Volume 93.2 fL (80.0-94.0); Mean Platelet Volume 9.8 fL (9.5-13.5); Monocytes Absolute Auto 0.7 10^3/uL (0.3-0.8); Monocytes Percent Auto 8.7 % (1.7-12.0); Neutrophils Absolute Auto 5.9 10^3/uL (1.4-6.5); Neutrophils Percent Auto 74.1 % (43.0-75.0); Platelet Count 238 10^3/uL (150-450); Red Blood Count 3.82 10^6/uL (4.70-6.10); Red Cell Distribution Width 11.7 % (11.0-15.0); White Blood Count 7.9 10^3/uL (4.0-11.0)
[2024-06-21 06:47] LABS: Alanine Aminotransferase 45 U/L (16-63); Albumin Globulin Ratio 0.6; Albumin Level 2.2 g/dL (3.4-5.0); Alkaline Phosphatase 184 U/L (46-116); Anion Gap 10.1; Aspartate Amino Transferase 31 U/L (15-37); Bilirubin Total 2.1 mg/dL (0.2-1.0); Calcium 8.7 mg/dL (8.5-10.1); Carbon Dioxide 26.5 mmol/L (21.0-32.0); Chloride 106 mmol/L (98-107); Estimated GFR (African America >60 (>=60); Estimated GFR (Non-African Ame >60 (>=60); Globulin 3.6 g/dL; Glucose 97 mg/dL (74-106); Potassium 3.6 mmol/L (3.5-5.1); Sodium 139 mmol/L (136-145); Total Protein 5.8 g/dL (6.4-8.2)
[2024-06-21 08:00] VITALS: BP 170/94; PULSE 51; TEMP 36.9; O2SAT 96
[2024-06-21] MEDS: DOCUSATE SODIUM 100 MG CAPSULE PO (08:04)
[2024-06-21] MEDS: POLYETHYLENE GLYCOL 3350 17 GM POWDER PACKET PO (08:04)
[2024-06-21] MEDS: KETOROLAC TROMETHAMINE 30 MG/ML VIAL IVP (08:04)
--- NOTE | 2024-06-21 08:22 | P.DS_ITS ---
DS: Providers Provider Date of admission: 06/17/24 10:58 Primary care physician: Non-Staff Physician, Admitting clinician: Shaikh Ileana Consults: 06/17/24 Consult to Beef Selector Routine Reason for consult:: Financial Concerns 06/17/24 11:01 Wound Assessment Consult Routine Consulting Provider: Jamie Oviedo Reason for consultation: left side end colostomy, education for patient and changing of bag Has provider been notified: No 06/17/24 13:12 Consult to General Surgeon Routine Consulting Provider: Jamie Oviedo Reason for consultation: sigmoid diverticulitis 06/18/24 Occupational Therapy Eval and Treat Routine Reason for consultation: Weakness Physical Therapy Eval and Treat Routine Reason for consultation: Weakness Discharging clinician: Janeth Gilman DS: Diagnosis Discharge Diagnosis (1) Perforated sigmoid colon: (2) Abdominal pain: Qualifiers: Abdominal location: left lower quadrant Qualified Code(s): R10.32 - Left lower quadrant pain DS: Summary Hospital Course Hospital Course: Patient is a 49-year-old male with no past medical history presented to the hospital with left lower quadrant abdominal pain that was persistent, associated with nausea and loss of appetite. He was evaluated in ER and was found to have acute sigmoid diverticulitis with perforation. She was taken to the OR earlier that morning. Had colectomy, with formation of colostomy. At the time of discharge labs and vitals have been stable. He is tolerating a soft diet. He has received colostomy care and has home health set up for home. He also has appropriate follow ups made and medications sent by primary Surgical Team. Surgeon, Dr. Oviedo has cleared patient for discharge since patient is tolerating diet and ambulating. He can return to the ER with any worsening signs or symptoms. Status at Discharge Functional status at discharge: independent ambulation Time Spent with Patient Time attestation: Total time spent providing and/or coordinating discharge services: Time spent: greater than 30 minutes Exam Narrative Exam Narrative: General: Patient is alert, and oriented to person, place and time with normal affect, proper hygiene Skin: no visible rashes, or ulcers Head: atraumatic, acephalic Heart: Normal rate and rhythm, no murmurs/rubs/gallops Lungs: no audible wheezes, crackles and normal breath sounds all lung santiago Abdomen: Normal audible bowel sounds, no distension, , colostomy present Musculoskeletal: no swelling bilateral lower extremities Neuro: CN II-X grossly intact Constitutional Vital Signs, click to edit/add: Last Vital Signs Temp 98.5 F 06/21/24 08:00 Pulse 51 L 06/21/24 08:00 Resp 16 06/21/24 08:00 BP 170/94 H 06/21/24 08:00 Pulse Ox 96 06/21/24 08:00 O2 Del Method Room Air 06/21/24 08:00 DS: Data Data Completed and Pending Labs on day of discharge: Labs from last 24 hours 06/21/24 06:01 WBC 7.9 RBC 3.82 L Hgb 12.2 L Hct 35.6 L MCV 93.2 MCH 31.9 MCHC 34.3 RDW 11.7 Plt Count 238 MPV 9.8 Neut % (Auto) 74.1 Lymph % (Auto) 14.2 L [place] % (Auto) 8.7 Eos % (Auto) 1.9 Baso % (Auto) 0.5 Neut # (Auto) 5.9 Lymph # (Auto) 1.1 L [place] # (Auto) 0.7 Eos # (Auto) 0.2 Baso # (Auto) 0.0 Abs Immat Gran (auto) 0.05 H Imm/Tot Granulo (auto) 0.6 H Sodium 139 Potassium 3.6 Chloride 106 Carbon Dioxide 26.5 Anion Gap 10.1 BUN 15.0 Creatinine 0.88 Est GFR ( Amer) >60 Est GFR (Non-Af Amer) >60 BUN/Creatinine Ratio 17.0 Glucose 97 Calcium 8.7 Total Bilirubin 2.1 H AST 31 ALT 45 Alkaline Phosphatase 184 H Total Protein 5.8 L Albumin 2.2 L Globulin 3.6 Albumin/Globulin Ratio 0.6 Discharge Plan Discharge Disposition: Home Health Service Discharge Medications: New cyclobenzaprine 10 mg tablet 10 mg PO TID Qty: 20 0RF docusate sodium [Colace] 100 mg capsule 100 mg PO BID 10 Days Qty: 20 0RF oxycodone-acetaminophen 5-325 mg tablet 1 tab PO Q6H PRN (Reason: pain) Qty: 20 0RF polyethylene glycol 3350 [Miralax] 17 gram powder in packet 17 g PO DAILY 30 Days Qty: 30 0RF ondansetron 4 mg tablet,disintegrating 4 mg PO Q8H 5 Days Qty: 15 0RF Rx Instructions: for nausea or emesis gabapentin 100 mg capsule 100 mg PO Q8H Qty: 30 0RF Activity: increase activity as tolerated Activity Detail: no lifting, pushing, or pulling more then 15lbs for 4 weeks after surgery Print Language: Mongolian Patient Instructions: Oxycodone/Acetaminophen (By mouth), Cyclobenzaprine (By mouth), Laxative, Stool Softeners (By mouth), Gabapentin (By mouth), Ondansetron (By mouth), Polyethylene Glycol 3350 (By mouth), Colostomy Care (DC), Perfor ated Bowel (DC), Colectomy (GEN) Biological Science Technician Fish/Door Clamp Operator Instructions: Discharge home with [facility], phone number is [phone]. They should contact you within 48 hours of discharge. Forms: Portal Instructions Referrals: Physician,Non-Staff, MD [Primary Care Provider] - 1 week Follow Up Appointments: Follow up with Dr. Oviedo 07/02/24, call office for appointment time [phone]
--- NOTE | 2024-06-21 09:13 | PM.GSPN ---
Progress Note: A&P Assessment and Plan (1) Perforated sigmoid colon: Assessment and Plan: s/p 06/17/24 ex lap, sigmoidectomy and end colostomy creation monitor ostomy output and stoma appearance, GI soft diet encourage ambulation and up in chair, continue hourly incentive spirometry use PT/OT Appreciate wound ostomy team for education Plan for discharge this am 06/21 F/U appointment 07/02/24 for staple removal Home health care for ostomy appliances (2) Abdominal pain: Qualifiers: Abdominal location: left lower quadrant Qualified Code(s): R10.32 - Left lower quadrant pain Subjective Subjective Interval history: Discussed with nursing, pt doing well, tolerating diet and ostomy functioning. Pain controlled. Pt has home health care set up for d/c. Plan for d/c this am. Exam Constitutional Vital Signs, click to edit/add: Last Vital Signs Temp 98.5 F 06/21/24 08:00 Pulse 51 L 06/21/24 08:00 Resp 16 06/21/24 08:00 BP 170/94 H 06/21/24 08:00 Pulse Ox 96 06/21/24 08:00 O2 Del Method Room Air 06/21/24 08:00 Urinary Catheter Management Urinary Catheter Management Urethral: Cath placed during this visit: no Urethral indwelling: Yes
--- NOTE | 2024-06-21 09:42 | PT.DAILY ---
Physical Therapy Daily Note PT Daily Note/Assess Start: 06/19/24 12:29 Freq: Status: Active Protocol: Document 06/21/24 09:37 BYRON (Rec: 06/21/24 09:42 BYRON [id number]) Physical Therapy Daily Note/Assessment Time In/Time Out Time In 09:27 Time Out 09:36 Pain In Pain Level 1 Pain Out Pain Level 4 Subjective Subjective Attempted to see pt at 0900- he just got his breakfast 926- returned and he was finished eating. Pt agreeable to PT this morning. 1/10 pain at rest. Therapeutic Activity Time Therapeutic Activity Minutes (minutes) 8 Therapeutic Activity Units 1 Therapeutic Activity Treatment Bed Mobility Ability Standby Assistance Chair Transfer Ability Standby Assistance Therapeutic Activity Comments Supine>sit SBA with increased time needed. 2x attempts for sit>stand but does not require any assistance. Just increased pain to 3/10 as pt reports he thinks he tried to stand too fast. Second attempt was better, SUP. Amb 15' to restroom where he brushes his teeth IND. Pt then amb in [place] 200' without AD with pillow against abdomen. Pt returned to supine SUP only. needs assistance to pull blankets up over his legs. Pt remains supine with head elevated, call light within reach and needs met. Total Physical Therapy Time Total Therapy Minutes 8 Total Physical Therapy Units 1 Summary Daily Note Summary No assistance needed for transfers but cont to perform these with increased time due to discomfort in abdomen. Pt is steady with gait but has decreased emanuel.
[2024-06-21 10:38] VITALS: O2SAT 96
--- NOTE | 2024-06-23 15:10 | CM.DCFOLLOWU ---
Person spoke with:patient How are you feeling? doing alright How is your pain? still having pain, but getting better Did you understand your discharge instructions? yes Do you have any questions about your discharge instructions? no Were you given any prescriptions at discharge? yes Were you able to get your prescriptions filled? yes Do you understand how to take your medications as ordered? yes Do you have any questions about your follow up appointment and do you plan to keep your follow up appointment? no questions, reviewed follow ups and he call Dr Powell office and confirmed to Is there anything else that you would like to discuss? no Questions/Comments/Concerns/Other:none
== END 2024-06-21 14:53 | disposition home health service (06) | DRG 331 ==
LOC: ER 06:37 → SURGOUT 06:41 → ICU 10:57 → SURGOUT 10:58 → ICU 06-18 08:06 → MS 06-18 13:27
PROVIDERS: Surgery; Admitting Provider Internal Medicine; Emergency Provider Emergency Medicine; Visit Provider Family Medicine
PROC: 0DTN0ZZ Resection of Sigmoid Colon, Open Approach (ICD-10-PCS; principal; 2024-06-17 07:00)
DX: K57.20 Diverticulitis of large intestine with perforation and abscess without bleeding (principal); K21.9 Gastro-esophageal reflux disease without esophagitis; Z79.899 Other long term (current) drug therapy; Z87.891 Personal history of nicotine dependence; Z59.811 Housing instability, housed, with risk of homelessness
CPT/HCPCS: 36415; 74177; 80048; 80053; 80076; 81001; 82150; 83690; 85025; 87086; 88307; 94667; 94668; 94761; 96366; 96372; 96375; 96376; 97161; 97165; 97530; 97535; 99285; J0330; J1170; J1650; J1885; J2250; J2270; J2405; J2543; J2704; J2710; J2800; J3010; Q9967

== ENCOUNTER 2024-06-27 16:45 | Emergency (ER) | payer OTHER, SELFPAY ==
[2024-06-27 16:47] VITALS: BP 118/83; PULSE 81; TEMP 37.1; O2SAT 98; BMI 27.7
[2024-06-27 17:10] LABS: Basophils Absolute Auto 0.1 10^3/uL (0.0-0.1); Basophils Percent Auto 0.3 % (0.2-2.0); Eosinophils Absolute Auto 0.1 10^3/uL (0.0-0.7); Eosinophils Percent Auto 0.3 % (0.9-7.0); Hemoglobin 14.6 g/dL (14.0-18.0); Immature Granulocytes Abs Auto 0.12 10^3/uL (0.00-0.03); Immature Granulocytes Pct Auto 0.7 % (0.0-0.5); Lymphocytes Absolute Auto 1.6 10^3/uL (1.2-3.8); Lymphocytes Percent Auto 8.7 % (20.5-60.0); Mean Corpuscular Hemoglobin 31.5 pg (25.9-34.0); Mean Corpuscular Volume 92.9 fL (80.0-94.0); Mean Platelet Volume 9.2 fL (9.5-13.5); Monocytes Absolute Auto 1.1 10^3/uL (0.3-0.8); Monocytes Percent Auto 5.9 % (1.7-12.0); Neutrophils Absolute Auto 15.3 10^3/uL (1.4-6.5); Neutrophils Percent Auto 84.1 % (43.0-75.0); Platelet Count 404 10^3/uL (150-450); Red Blood Count 4.63 10^6/uL (4.70-6.10); Red Cell Distribution Width 11.7 % (11.0-15.0); White Blood Count 18.2 10^3/uL (4.0-11.0)
[2024-06-27 17:24] LABS: Alanine Aminotransferase 48 U/L (16-63); Albumin Globulin Ratio 0.6; Albumin Level 2.9 g/dL (3.4-5.0); Alkaline Phosphatase 286 U/L (46-116); Anion Gap 15.6; Aspartate Amino Transferase 20 U/L (15-37); BUN Creatinine Ratio 14.5; Bilirubin Total 1.9 mg/dL (0.2-1.0); Calcium 9.5 mg/dL (8.5-10.1); Chloride 100 mmol/L (98-107); Estimated GFR (African America >60 (>=60); Estimated GFR (Non-African Ame >60 (>=60); Globulin 4.8 g/dL; Glucose 108 mg/dL (74-106); Potassium 3.6 mmol/L (3.5-5.1); Sodium 138 mmol/L (136-145); Total Protein 7.7 g/dL (6.4-8.2)
[2024-06-27 17:26] LABS: Lactate/Lactic Acid 1.6 mmol/L (0.4-2.0)
[2024-06-27] MEDS: PIPERACILLIN SODIUM/TAZOBACTAM 4.5 GM in 0.9 % SODIUM CHLORIDE 50 ML IV (17:33)
--- NOTE | 2024-06-27 17:35 | CT_ITS ---
[address] [address] Patient Name: LETHA SALMON MRN: [id number] date: 1975 Sex: M Assigned Patient Location: ER Current Patient Location: ED.MAIN Accession/Order Number: [id number] Exam Date: 06/27/2024 21:44 Report Date: 06/27/2024 22:56 At the request of: CLAUDIA GÓMEZ Procedure: CT abdomen pelvis w con CT ABDOMEN/PELVIS WITH IV CONTRAST. INDICATION: post op sigmoidectomy surgery possible leak. COMPARISON: 06/17/2024 TECHNIQUE: Contiguous axial images were obtained from the lung bases to the pelvic floor following the intravenous administration of contrast. Coronal and sagittal reformations are provided. FINDINGS: LOWER LUNGS: Clear. LIVER/BILIARY TREE: No mass. No intrahepatic ductal dilatation. GALLBLADDER: No significant gallbladder wall thickening. No radiopaque stone. CBD: Normal CBD. SPLEEN: Normal in size. PANCREAS: No acute findings. No peripancreatic fluid or inflammation. No pancreatic duct dilatation. No discrete mass. ADRENALS: Normal. KIDNEYS: No hydronephrosis. No radiopaque calculus. STOMACH AND BOWEL: Stomach is unremarkable. No dilated bowel loops. No bowel wall thickening. Status post sigmoidectomy with left colostomy. There is oral contrast in the right, transverse and descending colon. There is no oral contrast extravasation. APPENDIX: Normal appendix. PERITONEAL CAVITY: No evidence of free air. No fluid. . ABDOMINAL WALL: Postoperative changes of anterior abdominal wall with free fluid. No organized fluid collection. LYMPH NODES: No mesenteric or retroperitoneal lymphadenopathy by CT criteria. ABDOMINAL AORTA: No aneurysm. PELVIS: There is minimal gas in the bladder lumen. Prostatomegaly. MUSCULOSKELETAL: No acute osseous abnormality. CT/CT abdomen pelvis w con IMPRESSION: Status post sigmoidectomy with left colostomy. No evidence of a bowel leak. No fluid collection or abscess.. Electronically authenticated by: BIBI MODI Date: 06/27/2024 22:56
--- OUTSIDE RECORDS SUMMARY | 2024-06-27 18:03 | XMS_ITS | CCD ---
Author Organization [facility] Care Team Providers Care Tumbler Machine Operator Name Role Phone DO Jamie Oviedo Attending Provider Jamie Oviedo Admitting Unavailable Jamie Oviedo Attending Unavailable Results Test Name Value Interpretation Reference Range Facil ity Maxx 06-17-2024 L Specimen: [id number] Received: 06/18/24 Status: MELO Palencia Num: [id number] Spec Type: Surgical Subm Dr: Jamie Oviedo DO Tissues: A Colon - Segmental Resection, Without Tumor Procedures: HE/6, Gross/Micro L5 Age/ Patient Sex Location Account Attending Physician Javier Gudino 49/M [place] [id number] Jamie Oviedo DO SPEC NUM: [id number] RECD: 06/18/24 STATUS: MELO PALENCIA NUM: [id number] BRAD: 06/17/[address]: Jamie Oviedo DO ENTERED: 06/18/[address] [facility] DR: SPEC TYPE: Surgical DEPT: RAEGAN ESPINAL ENTERED BY: [id number] RECV BY: [id number] ORDERED: HE/6, Gross/Micro L5 ORDERED: HE/6, Gross/Micro L5 Pathological Diagnosis Sigmoid colon, sigmoidectomy: -Apparently ruptured diverticulitis with large associated pericolonic abscess containing degenerated fecal debris, and the patchy associated peritonitis -1 small benign incidental pericolonic lymph node -Unremarkable bilateral resection margins without acute inflammation Clinical Information Exploratory laparotomy, bowel resection for free air perforated bowel Gross Description The specimen was received in formalin with the patient's name and sigmoid colon,ostomy site and consists of a 12.0 cm in length, 3.0 cm diameter segment of sigmoid. The serosal surface is finn-pink smooth with areas of attached purulent debris. There are two unknown stapled margins. The serosal surface is finn with the usual folds. Minimal shallow diverticula are identified. Multiple areas of infected, necrotic, purulent adipose tissue is identified throughout the specimen. Hr Shared Services Consultant sections are as follows: A1 first staple line en face A2 second staple line en face A3 diverticula A4-A5 areas of purulent debris Specimen: [id number] Received: 06/18/24 Status: MELO Palencia Num: [id number] Spec Type: Surgical Subm Dr: Jamie Oviedo DO Tissues: A Colon - Segmental Resection, Without Tumor Procedures: HE/Aristeo, Gross/Micro L5 Patient: Javier Gudino [id number] (Continued) Specimen: [id number] Received: 06/18/24 (Continued) Gross Description (Continued) Signed (signature on file) Shilpa Powell MD 06/20/24 1203 Specimen: [id number] Received: 06/18/24 Status: MELO Palencia Num: [id number] Spec Type: Surgical Subm Dr: Jamie Oviedo DO Tissues: A Colon - Segmental Resection, Without Tumor Procedures: HE/6, Gross/Micro L5 Patient: Javier Gudino [id number] (Continued) Specimen: [id number] Received: 06/18/24 (Continued) Gross Description (Continued) A6 1 lymph node candidate DM Microscopic Description Microscopic examinations are performed supporting the above interpretation CPT Codes 53523 Specimen: [id number] Received: 06/18/24 Status: MELO Palencia Num: [id number] Spec Type: Surgical Subm Dr: Jamie Oviedo DO Tissues: A Colon - Segmental Resection, Without Tumor Procedures: HE/6, Gross/Micro L5 Patient: Javier Gudino [id number] (Continued) Signed (signature on file) Shilpa Powell MD 06/20/24 1203 Normal [facility] [place] 06-03-2020 Consent [id number] 7#1.00CD:127 [facility] Registrationon 06-03-2020 Registration [id number] 2#1.00CD:127 [facility] Encounters Encounter Date Encounter Type Care Provider Facility Start: 06-17-2024 End: 06-17-2024 ambulatory Jamie Oviedo [facility] Work Phone: Start: 06-17-2024 End: 06-17-2024 Departed Referred DO Jamie Oviedo Work Phone: [facility] Payers Date Payer Category Payer Self-pay [id number] Unknown MMO [id number] Unknown [place] BC/BS [id number] Unknown [id number] Social History Date Type Detail Facility Tobacco smoking stat [facility] Unknown if ever smoked [facility] Work Phone: Start: 1975 Sex Assigned At Male F [facility] Evaluation note Note Date & Type Note Facility Evaluation note No assessment information availa ble [facility] Work Phone: Summary Purpose Family History No Family History Records FoundNo Family History Records Found Advance Directives No Advanced Directives Records Found Advance Directive Response Recorded Date/ Time Advance Directives No November 08, 2021 2:40pm Additional Source Comments (unrecognized sect ion and content) No Status Records FoundNo Status Records Found INFORMATION SOURCE (unrecogn ized section and content) DATE CREATED AUTHOR 06/04/2020 [facility] DATE CREATED AUTHOR AUTHOR'S ORGANIZ ATION 06/22/2024 [facility] Care Teams (unrecognized sec tion and content) [...] BE BASED ON THE PRIMARY CLINICAL RECORDS. [facility]. provides no warranty or guarantee of the accuracy or completeness of information in this document.
--- NOTE | 2024-06-27 18:28 | ED.ABDPAIN1 ---
HPI - Abdominal Pain General Chief Complaint: Abdominal Pain Stated Complaint: Wound Check Time Seen by Provider: 06/27/24 16:46 History of Present Illness HPI narrative: The patient is coming to the ER after he had a perforated diverticulitis surgery with sigmoidectomy on the of this month which is 10 days ago. Patient apparently had a shower almost few hours ago when he noticed this drainage of stool like material from the lower edge of the wound. The patient denies any fever or chills he has been tolerating his diet and he had no abdominal pain that is significant he has been dependent on Norflex and gabapentin for the pain The patient presenting for evaluation of the wound Related Data Previous Rx's ?Medication ?Instructions ?Recorded cyclobenzaprine 10 mg tablet 10 mg PO TID muscle tightness #20 06/20/24 tabs docusate sodium 100 mg capsule 100 mg PO BID 10 days #20 caps 06/20/24 (Colace) gabapentin 100 mg capsule 100 mg PO Q8H nerve pain #30 caps 06/20/24 ondansetron 4 mg disintegrating 4 mg PO Q8H 5 days #15 tabs 06/20/24 tablet oxycodone-acetaminophen 5 mg-325 1 tab PO Q6H PRN pain #20 tabs 06/20/24 mg tablet polyethylene glycol 3350 17 gram 17 g PO DAILY 30 days #30 ea 06/20/24 oral powder packet (Miralax) Allergies Allergy/AdvReac Type Severity Reaction Status Date / Time No Known Drug Allergies Allergy Verified 06/27/24 16:47 Review of Systems ROS Status of ROS 10 or more systems reviewed and unremarkable except as noted in history and below PFSH PFS Medical History (Updated 06/27/24 @ 18:31 by Sarita Cisneros MD) Perforated sigmoid colon ?K63.1 - Perforation of intestine (nontraumatic) (ICD-10) Colostomy in place ?Z93.3 - Colostomy status (ICD-10) Family History (Updated 06/17/24 @ 11:50 by Cynthia Rivero RN) Mother Family history of pancreatic cancer Brother Diabetes Father Diabetes Social History (Updated 06/17/24 @ 11:55 by Cynthia Rivero RN) Within the past year, how often did you have a drink containing alcohol: monthly or less Within the past year, how many standard drinks containing alcohol did you have on a typical day: 1 or 2 Within the past year, how often did you have six or more drinks on one occasion: never Total score: 0 Score interpretation: A score less than 4 is consistent with normal alcohol consumption. Smoking status: Former smoker Non-prescribed substance use: cannabis (any form) Non-prescribed substance use details: smoke and use edibles marijuana Highest level of school completed/degree received: 11th grade Do you want help with school or training: No Are you now , , , , never or living with a partner: In a typical week, how many times do you talk on the telephone with family, friends, or neighbors: 3 or more times per week How often do you get together with friends or relatives: 3 or more times per week How often do you attend roman catholic or episcopal services: never Little interest or pleasure in doing things: not at all Feeling down, depressed, or hopeless: not at all Feel stressed/tense/nervous/anxious/difficulty sleeping: to some extent Life stressors: financial matters Life stressor details: afraid of losing home from being off work Due to disability, difficulty making decisions: No Do you think of yourself as: straight/heterosexual Gender Identity: male Exam Narrative Exam Narrative: Nurses notes and vital signs reviewed and patient is not hypoxic. General: Well-appearing and in no apparent distress. Skin: Warm, dry, no pallor noted. No rash. Head: Normocephalic, atraumatic. Neck: Supple, non-tender. Eye: Pupils are equal, round and EOMI. No scleral icterus. Ears, Nose, Mouth, and Throat: TM are clear, no nasal mucosal hypertrophy. Oral mucosa is moist, no posterior oropharynx erythema, uvula is mid-line Cardiovascular: Regular Rate and Rhythm without murmur, gallop or rub. Respiratory: No accessory muscle use or respiratory distress. Lungs are clear to auscultation, no wheezing, rales or rhonchi Chest Wall: no tenderness Back: No midline thoracic or lumbar vertebral tenderness. No CVA tenderness Musculoskeletal: normal ROM, no calf or popliteal tenderness, no lower extremity edema/swelling GI: Abdomen the patient have a laparotomy wound with a lower edge of the wound shows leaking of stool like material, danial does not show any dehiscence and the patient have some mild redness surrounding the wound generally mostly toward the lower end of the wound, colostomy bag in place and draining adequately Neurological: A&O x4. No cranial nerve dysfunction observed. No truncal ataxia. Moves all extremities. Sensation intact. Psychiatric: Cooperative and interactive. Normal mood and affect. Constitutional Vital Signs, click to edit/add: Last Vital Signs Temp 98.7 F 06/27/24 16:47 Pulse 81 06/27/24 16:47 Resp 20 06/27/24 16:47 BP 118/83 06/27/24 16:47 Pulse Ox 98 06/27/24 16:47 O2 Del Method Room Air 06/27/24 16:47 Course Vital Signs Vital signs: Vital Signs Temperature 98.7 F 06/27/24 16:47 Pulse Rate 81 06/27/24 16:47 Respiratory Rate 20 06/27/24 16:47 Blood Pressure 118/83 06/27/24 16:47 Pulse Oximetry 98 06/27/24 16:47 Oxygen Delivery Method Room Air 06/27/24 16:47 Temperature 98.7 F 06/27/24 16:47 Pulse Rate 81 06/27/24 16:47 Respiratory Rate 06/27/24 16:47 Blood Pressure 118/83 06/27/24 16:47 Pulse Oximetry 98 06/27/24 16:47 Oxygen Delivery Method Room Air 06/27/24 16:47 MDM - Abdominal Pain MDM Narrative Medical decision making narrative: Upon arrival the patient wound shows possible leaking of stool although there is also possibility of an abscess CBC shows leukocytosis blood culture obtained and the patient was started on Zosyn The patient also had a chemistry showing no acute pathology I spoke with Dr. Oviedo and he requested the patient have a CAT scan of the abdomen pelvis with IV contrast and p.o. contrast as well He also requested that the patient had the last 2 stitches removed and evaluation for possible abscess up removing the stitches the patient had more pus leaking almost 5 cc of pus at least I did discuss the case and again with Dr. Oviedo and removed more stitches according to his advice and it was adequately draining almost 30 cc of pus at least, I could not pack the the wound as it is already closed and healing pt care transferred to Dr. Simon awaiting the CAT scan result Lab Data Labs: Lab Results 06/27/24 Range/Units 16:58 WBC 18.2 H (4.0-11.0) 10^3/uL RBC 4.63 L (4.70-6.10) 10^6/uL Hgb 14.6 (14.0-18.0) g/dL Hct 43.0 (42.0-54.0) % MCV 92.9 (80.0-94.0) fL MCH 31.5 (25.9-34.0) pg MCHC 34.0 (29.9-35.2) g/dL RDW 11.7 (11.0-15.0) % Plt Count 404 (150-450) 10^3/uL MPV 9.2 L (9.5-13.5) fL Neut % (Auto) 84.1 H (43.0-75.0) % Lymph % (Auto) 8.7 L (20.5-60.0) % [place] % (Auto) 5.9 (1.7-12.0) % Eos % (Auto) 0.3 L (0.9-7.0) % Baso % (Auto) 0.3 (0.2-2.0) % Neut # (Auto) 15.3 H (1.4-6.5) 10^3/uL Lymph # (Auto) 1.6 (1.2-3.8) 10^3/uL [place] # (Auto) 1.1 H (0.3-0.8) 10^3/uL Eos # (Auto) 0.1 (0.0-0.7) 10^3/uL Baso # (Auto) 0.1 (0.0-0.1) 10^3/uL Abs Immat Gran (auto) 0.12 H (0.00-0.03) 10^3/uL Imm/Tot Granulo (auto) 0.7 H (0.0-0.5) % Sodium 138 (136-145) mmol/L Potassium 3.6 (3.5-5.1) mmol/L Chloride 100 (98-107) mmol/L Carbon Dioxide 26.0 (21.0-32.0) mmol/L Anion Gap 15.6 BUN 17.0 (7.0-18.0) mg/dL Creatinine 1.17 (0.70-1.30) mg/dL Est GFR ( Amer) >60 (>=60) Est GFR (Non-Af Amer) >60 (>=60) BUN/Creatinine Ratio 14.5 Glucose 108 H (74-106) mg/dL Lactate 1.6 (0.4-2.0) mmol/L Calcium 9.5 (8.5-10.1) mg/dL Total Bilirubin 1.9 H (0.2-1.0) mg/dL AST 20 (15-37) U/L ALT 48 (16-63) U/L Alkaline Phosphatase 286 H (46-116) U/L Total Protein 7.7 (6.4-8.2) g/dL Albumin 2.9 L (3.4-5.0) g/dL Globulin 4.8 g/dL Albumin/Globulin Ratio 0.6 Discharge Plan Discharge Patient Disposition: Still a Patient
[2024-06-27 20:02] VITALS: BP 118/80; PULSE 79; O2SAT 99
[2024-06-27 21:38] VITALS: BP 112/80; PULSE 79; O2SAT 99
[2024-06-27 23:56] VITALS: BP 111/76; PULSE 78; O2SAT 99
[2024-06-28 01:24] VITALS: BP 110/80; PULSE 80; O2SAT 99
== END 2024-06-28 01:24 | disposition home or self-care (01) ==
PROVIDERS: Emergency Medicine; Emergency Provider Internal Medicine
DX: T81.41XA Infection following a procedure, superficial incisional surgical site, initial encounter (principal); L02.211 Cutaneous abscess of abdominal wall; L03.311 Cellulitis of abdominal wall; Z93.3 Colostomy status; Z87.891 Personal history of nicotine dependence
CPT/HCPCS: 36415; 74177; 80053; 83605; 85025; 87040; 87070; 87075; 87150; 87186; 96365; 99285; J2543; Q9966; Q9967

== ENCOUNTER 2024-07-02 11:19 | Day surgery (SDC) | payer OTHER, SELFPAY ==
[2024-07-02] VITALS (11 sets, daily range): BP systolic 110–153; BP diastolic 80–95; PULSE 79–119; TEMP 36.4–36.8; O2SAT 96–100; BMI 25.8
--- OUTSIDE RECORDS SUMMARY | 2024-07-02 11:26 | XMS_ITS | CCD ---
Author Organization [facility] ion Partnership [facility] Care Team Providers Care Field Recorder Name Role Phone DO Jamie Oviedo Attending Provider [phone] Jamie Oviedo Admitting Unavailable Jamie Oviedo Attending Unavailable Anthony Shirley Attending Unavailable DO Anthony Shirley Attending Unavailable ANATOLY CARRINGTON Primary Care Physician Problems Problem Classification Problem Date Documented Date Episodic/Chronic Complications of surgical procedures or medical care (1 source) Wound dehiscence; Translations: [Disruption of wound, unspecified, initial encounter] Onset: 07-01-2024 Episodic Diverticulosis and diverticulitis (2 sources) Diverticulosis of colon; Translations: [Perforated diverticulum of intestine] 06-30-2024 Chronic Esophageal disorders (1 source) Acid reflux 06-30-2024 Chronic Substance-related disorders (1 source) Smoker 06-30-2024 Chronic Comment on above: Added secondary to d ocumentation in Social History. Results Test Name Value Interpretation Reference Range Facility CT Abdomen/Pelvis w/ Contras ton 07-01-2024 CT Abdomen/Pelvis w/ Contrast Exam Date/Time: 06/30/2024 23:25 EDT Reason for Exam: Post op;Other (please specify) Report IMPRESSION: POSTOPERATIVE CHANGES FROM RECENT LEFT LOWER QUADRANT COLOSTOMY AND NIEVES POUCH. NO FREE AIR, ORGANIZED FLUID COLLECTION, HEMATOMA, OR ABNORMAL BOWEL DILATATION. EXAM: CT Abdomen/Pelvis w/ Contrast DATE: 06/30/2024 11:14 PM CLINICAL HISTORY: Post op. COMPARISON: None available. TECHNIQUE: Spiral imaging was obtained of the abdomen and pelvis after the uneventful infusion of approximately 100 mL of Isovue [address] scans at this facility use dose modulation, iterative reconstruction, and/or weight based dosing when appropriate to reduce radiation dose to as low as reasonably achievable. Unless otherwise stated, incidental findings identified in this report do not require routine follow-up imaging. FINDINGS: Liver: No enlargement, significant fatty infiltration, suspicious mass or lesion. Biliary: The gallbladder is unremarkable. No abnormal biliary ductal dilatation. Pancreas: No mass, organized fluid collection, surrounding inflammation, or abnormal pancreatic ductal dilatation. Spleen: Unremarkable. Adrenals: Unremarkable. Kidneys: No hydronephrosis, significant urinary tract calculi, or suspicious mass. GI tract: Left lower quadrant colostomy and Nieves pouch with ill-defined surrounding inflammation. No abnormal bowel dilatation or suspected abnormal bowel thickening. Lymph nodes: No pathologically enlarged lymph nodes. Mesentery/peritoneu m: No free air, organized hematoma, fluid collection, ascites or mass. Retroperitoneum: No inflammatory changes or mass. Pelvis: A small amount of gas within the otherwise unremarkable bladder is only related to recent catheterization. No mass, organized fluid collection, hematoma, or ascites. Vasculature: No aneurysm or dissection. Musculoskeletal: Anterior abdominal wall surgical wound that is open inferiorly with mild ill-defined surrounding inflammation. No organized fluid collection or acute osseous findings identified. Report Lower thorax: Noncontributory. Ordering Provider: Mark Frank FINAL REPORT Dictated: 07/01/2024 9:09 am Reji Herzog MD Signed (Electronic Signature): 07/01/2024 9:09 am Signed by: Reji Herzog MD Transcribed by: NHUNG Technologist: GAVINO Technical Comments GFR (mL/min/1/73m2) n/a Contrast: Isovue 300 Contrast amount in ml's: 100 Normal [facility] ED Clinical Summaryon 2023 ED Clinical Summary ED Clinical Summary [place] [id number] ED Clinical Summary Person Information Name: JAVIER GUDINO/[facility] Age: 49 Years : 1975 Sex: Male Language: [place] Korean PCP: ANATOLY CARRINGTON CNP Marital Status: Visit Id: Visit Reason: Post surgical problem; POST SURGERY PROBLEM Speciality: Acuity: 3 Enc Type: Emergency Med Service: Emergency Arrival: 06/30/2024 21:25:52 Discharge: 07/01/2024 02:14:49 LOS: 000 04:49 Checkin: 06/30/2024 21:25:52 Checkout: 07/01/2024 02:14:49 Dispo Type: Home (Routine DC) EVENTS: Event Name Event Status Request Date/Time Start Date/Time Complete Date/Time Arrive Complete 06/30/2024 21:25:52 06/30/2024 21:25:52 06/30/2024 21:25:52 Document Home Meds Request 06/30/2024 21:25:52 Triage Complete 06/30/2024 21:25:52 06/30/2024 21:49:41 06/30/2024 21:49:41 Registration Complete 06/30/2024 21:35:27 06/30/2024 21:35:27 06/30/2024 21:35:27 Reg Complete Request 06/30/2024 21:35:27 Reg Bed Request Complete 06/30/2024 21:35:27 06/30/2024 21:35:27 06/30/2024 21:35:27 Bed Assign Complete 06/30/2024 21:37:15 06/30/2024 21:37:15 06/30/2024 21:37:15 Dr Exam Complete 06/30/2024 21:37:15 06/30/2024 21:38:24 06/30/2024 21:38:24 RN Exam Complete 06/30/2024 21:37:15 06/30/2024 22:01:44 06/30/2024 22:01:44 Registration Request 06/30/2024 21:38:24 Dr Exam Complete 06/30/2024 21:45:03 06/30/2024 21:45:03 06/30/2024 21:45:03 EKG Complete 06/30/2024 22:19:47 07/01/2024 00:07:35 Pending Labs Request 06/30/2024 22:19:47 Lab Request 06/30/2024 22:19:47 RT Request 06/30/2024 22:19:47 CT Complete 06/30/2024 22:20:17 06/30/2024 23:14:33 06/30/2024 23:25:59 Pending Labs Complete 06/30/2024 22:52:18 06/30/2024 22:52:18 06/30/2024 23:34:33 Lab Complete 06/30/2024 22:52:18 06/30/2024 22:52:18 06/30/2024 23:34:33 Discharge Complete 07/01/2024 01:30:06 07/01/2024 02:15:03 07/01/2024 02:15:03 Transfer Complete 07/01/2024 02:15:03 07/01/2024 02:15:03 07/01/2024 02:15:03 ADDRESS: [address] [place] [phone] PHYS DOC NOTES: MEDICAL INFORMATION: Prescriptions Given: PATIENT EDUCATION INFORMATION: Instructions: Wound Dehiscence Follow up: With: Address: When: BRIAN OVIEDO [address] [place], [place] [id number] [facility] () In 1 day 07/02/2024 Comments: Keep scheduled appointment DIAGNOSIS: 1:Wound dehiscence Normal [facility] ED Note-Physicianon 07-01-20 ED Note-Physician ED Note-Physician Basic Information Time Seen: Mark Frank PA-C 06/30/2024 21:38 Chief Complaint pt. had ostomy surgery at [facility] on 06/17 after a perf.diverticulum, states his wound is open and draining. f/u with Dr. Oviedo is 07/02/24. History of Present Illness Patient is a 49-year-old male that presents today for evaluation of his opening wound with associated drainage. He states that he had surgery for perforated diverticulum on 06/17/2024 at [facility] with Dr. Oviedo. He had an ostomy placed to the left laterally to his midline incision. He was doing well up until about or Sunday when he noted some drainage coming from his midline incision. He was concerned and went to [facility] and they diagnosed him with an infection in the incision. They took out his danial and placed him on antibiotics. Ever since he had his danial removed the wound has now opened further. There are 2 holes now that seem to be draining. He denies any fevers, bodies, chills. He feels fine outside of this. He is concerned that the wound will continue to open and his abdominal contents would be exposed. Review of Systems No other aggravating or relieving factors no other associated symptoms no other prior treatments or complaints. Family: Reviewed and noncontributory Social: lives at home Review of systems negative unless otherwise specified in the HPI. Physical Exam Vitals & Measurements T: 36.6 ?C(Oral) HR: 83(Monitored) RR: 15 BP: 127/91 SpO2: 97% HT: 182 cm WT: 89.6 kg BMI: 27.05 General: The patient appears well and in no apparent distress. Patient is resting comfortably on cart. Skin: Warm, dry, no pallor noted. Head: Normocephalic, atraumatic Neck: No JVD Eye: PERRLA, EOMI ENT: Moist mucus membranes Cardiovascular: Regular rate and rhythm. Normal peripheral perfusion Respiratory: CTA bilaterally. No respiratory distress no accessory muscle use no obvious audible wheezing Chest Wall: no deformity Musculoskeletal: normal ROM, no deformity, no swelling GI: Soft no obvious distention. No rebound or rigidity. No guarding. No tenderness. There is a midline incision noted to his abdomen with wound dehiscence approximately 10 cm in nature. There are 2 punctate holes noted at the superior and inferior aspects of the dehisced wound with some mild drainage coming from them. No surrounding erythema or edema noted. Neurological: A&O moves all extremities equal strength and symmetry Psychiatric: Cooperative and appropriate Medical Decision Making Patient is a 49-year-old male who presents today for evaluation of his opening wound with associated drainage. He had surgery for perforated diverticulum on 06/17/2024 at [facility] with Dr. Oviedo. He had an ostomy placed to the left laterally to his midline incision. He was doing well up until about or Sunday when he noted some drainage coming from his midline incision. He was concerned and went to [facility] and they diagnosed him with an infection in the incision. They took out his danial and placed him on antibiotics. Ever since he had his danial removed the wound has now opened further. There are 2 holes now that seem to be draining. On exam the patient is afebrile and nontoxic-appearing. His abdomen is soft and nontender. There is a midline incision noted to his abdomen with wound dehiscence approximately 10 cm in nature. There are 2 punctate holes noted at the superior and inferior aspects of the dehisced wound with some mild drainage coming from them. No surrounding erythema or edema noted. Given the concern for infection we did do a septic workup. Initial labs are WNL including WBC and lactic acid. Patient was signed out to Dr. Shirley pending CT of the abdomen and pelvis with IV contrast. CT of the abdomen pelvis shows stomach is moderately distended with retained oral contents and gas. No gastric mucosal thickening or retrograde distention of the distal esophagus. No evidence for bowel obstruction. No definite asymmetric bowel mucosal abnormality. There is minimal fat stranding in the left lower quadrant, presumably related to recent colostomy. There is also fat stranding adjacent to the diverting colonic segment extending to the left-sided ostomy. Mild mucosal thickening of the diverting loop is noted however this loop is decompressed. The appearance may be secondary to postoperative edema or decompression. No abscess, loculated fluid collection or hematoma. The Norman's pouch is unremarkable in the pelvis. The vertical incision is incompletely closed in the infraumbilical region. There are superficial skin danial in the periumbilical region but no skin danial inferiorly with incomplete closure superficially. There is gas within the incision at the anterior midline pelvic subcutaneous fat. No hernia in this area. No significant asymmetric thickening of the rectus muscles. The liver, gallbladder, pancreas, spleen, adrenal glands and kidneys are unremarkab (more content not included)... Normal [facility] Comment on above: Result Comment: Elec tronically Signed By: Mark Frank PA-C\.br\Date and Time Signed: 07/01/24 00:52 EDT\.br\Electronically Co-Signed By: Anthony Shirley DO\.br\Date and Time Co-Signed: 07/01/24 01:33 EDT ED Patient Summaryon 024 ED Patient Summary ED Patient Summary [place] [id number] Patient Discharge Instructions Person Information Name: JAVIER GUDINO Age: 49 Years Arrival Date: 06/30/2024 21:25:52 Discharge Diagnosis: 1:Wound dehiscence Primary Care Physician: ANATOLY CARRINGTON CNP Provider Information Primary Provider: Anthony Shirley DO [employer] Hand:Mark Frank PA-C The exam and treatment you received in the Emergency Department were for an urgent problem and are not intended as complete care. It is important that you follow up with a doctor, nurse practitioner, or physician?s college sports assistant for ongoing care. If your symptoms become worse or you do not improve as expected and you are unable to reach your usual health care provider, you should return to the Emergency Department. We are available 24 hours a day. JAVIER GUDINO has been given the following list of patient education materials, prescriptions and follow-up instructions: Follow-up Instructions: With: Address: When: BRIAN OVIEDO [address] [place] [address] [facility] () In 1 day 07/02/2024 Comments: Keep scheduled appointment In the event that this physician does not participate in your insurance network, please consult with your insurance company to find a nearby participating provider. Patient Education Materials: Wound Dehiscence A MESSAGE TO ALL PATIENTS REGARDING OPIOIDS PRESCRIPTION OPIOIDS: WHAT YOU NEED TO KNOW Prescription opioids can be used to help relieve xclzmyce-vu-yawlqx pain and are often prescribed following a surgery or injury, or for certain health conditions. These medications can be an important part of the treatment but also come with serious risks. It is important to work with your healthcare provider to make sure you are getting the safest, most effective care. WHAT ARE THE RISKS AND SIDE EFFECTS OF OPIOID USE? Prescription opioids carry serious risks of addiction and overdose, especially with prolonged use. An opioid overdose, often marked by slowed breathing, can cause sudden . The use of prescription opioids can have a number of side effects as well, even when taken as directed: ? Tolerance?meaning you might need to take more of the medication for the same pain relief ? Physical dependence?meaning you have symptoms of withdrawal when a medication is stopped ? Increased sensitivity to pain ? Constipation ? Nausea, vomiting, and dry mouth ? Sleepiness and dizziness ? Confusion ? Depression ? Low levels of testosterone that can result in lower sex drive, energy, and strength ? Itching and sweating RISKS ARE GREATER WITH: ? History of drug misuse, substance use disorder, or overdose ? Mental health conditions (such as depression or anxiety) ? Sleep apnea ? Older age (65 years and older) ? Avoid alcohol while taking prescription opioids. Also, unless specifically advised by your health care provider, medications to avoid include: ? Benzodiazepines (such as Xanax or Valium) ? Muscle relaxants (such as Soma or Flexeril) ? Hypnotics (such as Ambien or Lunesta) ? Other prescription opioids KNOW YOUR OPTIONS Talk to your health care provider about ways to manage your pain that don?t involve prescription opioids. Some of these options may actually work better and have fewer risks and side effects. Options may include: ? Pain relievers such as acetaminophen, ibuprofen, and naproxen ? Some medication that are also used for depression or seizures ? Physical therapy and exercise ? Cognitive behavioral therapy, a psychological, goal-directed approach, in which patients learn how to modify physical, behavioral, and emotional triggers of pain and stress. IF YOU ARE PRESCRIBED OPIOIDS FOR PAIN: ? Never take opioids in greater amounts or more often than prescribed. ? Follow up with your primary health care provider. o Work together to create a plan on how to manage your pain. o Talk about ways to help manage your pain that don?t involve prescription opioids. o Talk about any and all concerns and side effects. ? Help prevent misuse and abuse o Never sell or share prescription opioids. o Never use another person?s prescription opioids. ? Store prescription opioids in a secure place and out of reach of others (this may include visitors, children, friends, and family). ? Safely dispose of unused prescription opioids: Find your community drug take-back program or your pharmacy mail-back program, or flush them down the toilet, following guidance from the Food and Drug Administration (www.fda.gov/Drugs/ ResourcesForYou). ? Visit www.cdc.gov/drugove rdose to learn about the risks of opioids abuse and overdose. ? If you believe you may be struggling with addiction, tell your health healthcare economics consultant and ask for guidance or call [facility] (more content not included)... Normal [facility] CBC w/ Auto Diffon 4 Basophils/100 WBC (Bld) 1.3 % Normal 0.0-2.0 [facility] Comment on above: Performed By: #### 2 [id number] #### [facility] [address] [place] [address] Basophils/Leukocytes Auto (Bld) [Pure # fraction] 0.1 E9/L Normal 0.0-0.2 [facility] Comment on above: Performed By: #### 2 [id number] #### [facility] [address] [place] [address] Eosinophils (Bld) [#/Vol] 0.1 E9/L Normal 0.0-0.5 [facility] Comment on above: Performed By: #### 2 [id number] #### [facility] [address] [place] [address] Eosinophils/100 WBC (Bld) 1.4 % Normal 0.0-8.0 [facility] Comment on above: Performed By: #### 2 [id number] #### [facility] [address] [place] [address] Erythrocyte distribution width (RBC) [Ratio] 12.4 % Normal 10.9-14.2 [facility] Comment on above: Performed By: #### 2 [id number] #### [facility] [address] [place] [address] Hematocrit (Bld) [Volume fraction] 43.3 % Normal 37.7-49.0 [facility] Comment on above: Performed By: #### 2 [id number] #### [facility] [address] [place] [address] Hemoglobin (Bld) [Mass/Vol] 15.3 g/dL Normal 13.5-17.5 [facility] Comment on above: Performed By: #### 2 [id number] #### [facility] [address] [place] [address] Lymphocytes (Bld) [#/Vol] 1.3 E9/L Normal 1.0-4.0 [facility] Comment on above: Performed By: #### 2 [id number] #### [facility] [address] [place] [address] Lymphocytes/100 WBC (Bld) 14.8 % Normal 14.0-50.0 [facility] Comment on above: Performed By: #### 2 [id number] #### [facility] [address] [place] [address] MCH (RBC) [Entitic mass] 32.2 pg Normal 27.0-34.0 [facility] Comment on above: Performed By: #### 2 [id number] #### [facility] [address] [place] [address] MCHC (RBC) [Mass/Vol] 35.3 g/dL Normal 31.4-36.0 [facility] Comment on above: Performed By: #### 2 [id number] #### [facility] [address] [place] [address] MCV (RBC) [Entitic vol] 91.1 fL Normal 80.0-100.0 [facility] Comment on above: Performed By: #### 2 [id number] #### [facility] [address] [place] [address] Monocytes (Bld) [#/Vol] 0.7 E9/L Normal 0.2-1.0 [facility] Comment on above: Performed By: #### 2 [id number] #### [facility] [address] [place] [address] Neutrophils (Bld) [#/Vol] 6.6 E9/L Normal 2.0-7.5 [facility] Comment on above: Performed By: #### 2 [id number] #### [facility] [address] [place] [address] Neutrophils/100 WBC (Bld) 74.3 % Normal 36.0-75.0 [facility] Comment on above: Performed By: #### 2 [id number] #### [facility] [address] [place] [address] Platelet 645.0 E9/L High 150.0-500.0 [facility] Comment on above: Performed By: #### 2 [id number] #### [facility] [address] [place] [address] Platelet mean volume (Bld) [Entitic vol] 7.4 fL Normal 6.4-10.8 [facility] Comment on above: Performed By: #### 2 [id number] #### [facility] [address] [place] [address] RBC (Bld) [#/Vol] 4.8 E12/L Normal 4.3-5.9 [facility] Comment on above: Performed By: #### 2 [id number] #### [facility] [address] [place] [address] WBC corrected for nucl RBC Auto (Bld) [#/Vol] 8.8 E9/L Normal 4.0-11.0 [facility] Comment on above: Performed By: #### 2 [id number] #### [facility] [address] [place] [address] CHEMISTRYOrdered By: SYSTEM SYSTEM on 06-30-2024 Albumin [Mass/Vol] 3.9 g/dL Normal 3.3 - 5.0 gm/dL Remisol Chem Albumin/Globulin [Mass ratio] 1.0 {ratio} Low 1.1 - 2.2 Remisol Chem ALP [Catalytic activity/Vol] 247 [iU]/d High 21 - 98 Int._Unit/L Remisol Chem ALT No additional P-5'-P [Catalytic activity/Vol] 43 [iU]/d Normal 6 - 46 Int._Unit/L Remisol Chem Anion gap [Moles/Vol] 12 mmol/L Normal 6 - 16 mEq/L R emisol Chem AST [Catalytic activity/Vol] 24 [iU]/d Normal 5 - 43 Int._Unit/L Remisol Chem Bilirubin [Mass/Vol] 0.8 mg/dL Normal 0.0 - 1 .1 mg/dL Remisol Chem Calcium [Mass/Vol] 9.8 mg/dL Normal 8.9 - 11. 1 mg/dL Remisol Chem Chloride [Moles/Vol] 103 mmol/L Normal 101 - 1 11 mmol/L Remisol Chem CO2 [Moles/Vol] 28 mmol/L Normal 21 - 31 mmol/L Rem[facility] Chem Creatinine [Mass/Vol] 1.0 mg/dL Normal 0.5 - 1.3 mg/dL Remisol Chem eGFR 92 mL/min/1.73 m2 Normal >=59mL/min /1. 73 m2 Remisol Chem Globulin (S) [Mass/Vol] 3.8 g/dL Normal 1.4 - 4.0 gm/dL Remisol Chem Glucose [Mass/Vol] 101 mg/dL Normal 55 - 199 mg/dL Remisol Chem Lactic Acid Lvl 0.9 mmol/L Normal 0.5 - 2.2 mmol/L [facility] Chem Potassium [Moles/Vol] 4.1 mmol/L Normal 3.5 - 5.3 mmol/L Remisol Chem Protein [Mass/Vol] 7.7 g/dL Normal 6.0 - 7.8 gm/dL Rem[facility] Chem Sodium [Moles/Vol] 139 mmol/L Normal 135 - 145 mmol/L Remisol Chem Urea nitrogen [Mass/Vol] 16 mg/dL Normal 5 - 21 mg/dL Remisol Chem Urea nitrogen/Creatinine [Mass ratio] 16 mg/mg Normal 10 - 20 Remisol Chem CMPon 06-30-2024 Albumin [Mass/Vol] 3.9 g/dL Normal 3.3-5.0 [facility] Comment on above: Performed By: #### 2 [id number] #### [facility] [address] [place] [address] Albumin/Globulin (S) [Mass conc ratio] 1.0 Low 1.1-2.2 [facility] Comment on above: Performed By: #### 2 [id number] #### [facility] [address] [place] [address] ALP [Catalytic activity/Vol] 247 Int._Unit/L High 21-98 [facility] Comment on above: Performed By: #### 2 [id number] #### [facility] [address] [place] [address] ALT No additional P-5'-P [Catalytic activity/Vol] 43 Int._Unit/L Normal 6-46 [facility] Comment on above: Performed By: #### 2 [id number] #### [facility] [address] [place] [address] Anion gap [Moles/Vol] 12 mmol/L Normal 6-16 [facility] Comment on above: Performed By: #### 2 [id number] #### [facility] [address] [place] [address] AST [Catalytic activity/Vol] 24 Int._Unit/L Normal 5-43 [facility] Comment on above: Performed By: #### 2 [id number] #### [facility] [address] [place] [address] Bilirubin [Mass/Vol] 0.8 mg/dL Normal 0.0-1.1 [facility] Comment on above: Performed By: #### 2 [id number] #### [facility] [address] [place] [address] Calcium [Mass/Vol] 9.8 mg/dL Normal 8.9-11.1 [facility] Comment on above: Performed By: #### 2 [id number] #### [facility] [address] [place] [address] Chloride [Moles/Vol] 103 mmol/L Normal 101-111 [facility] Comment on above: Performed By: #### 2 [id number] #### [facility] [address] [place] [address] CO2 [Moles/Vol] 28 mmol/L Normal 21-31 [facility] Comment on above: Performed By: #### 2 [id number] #### [facility] [address] [place] [address] Creatinine [Mass/Vol] 1.0 mg/dL Normal 0.5-1.3 [facility] Comment on above: Performed By: #### 2 [id number] #### [facility] [address] [place] [address] Globulin (S) [Mass/Vol] 3.8 g/dL Normal 1.4-4.0 [facility] Comment on above: Performed By: #### 2 [id number] #### [facility] [address] [place] [address] Glucose [Mass/Vol] 101 mg/dL Normal 55-199 [facility] Comment on above: Performed By: #### 2 [id number] #### [facility] [address] [place] [address] Potassium [Moles/Vol] 4.1 mmol/L Normal 3.5-5.3 [facility] Comment on above: Performed By: #### 2 [id number] #### [facility] [address] [place] [address] Protein [Mass/Vol] 7.7 g/dL Normal 6.0-7.8 [facility] Comment on above: Performed By: #### 2 [id number] #### [facility] [address] [place] [address] Sodium [Moles/Vol] 139 mmol/L Normal 135-145 [facility] Comment on above: Performed By: #### 2 [id number] #### [facility] [address] [place] [address] Urea nitrogen [Mass/Vol] 16 mg/dL Normal 5-21 [facility] Comment on above: Performed By: #### 2 [id number] #### [facility] [address] [place] [address] Urea nitrogen/Creatinine [Mass ratio] 16 No Units Normal 10-20 [facility] Comment on above: Performed By: #### 2 [id number] #### [facility] [address] [place] [address] COAGULATIONOrdered By: Godfrey Wu on 06-30-2024 aPTT Coag (PPP) [Time] 37.5 s High 25.1 - 36.5 second(s) [facility] Auto Coag Comment on above: Interpretive Data: [address] 15 days - 4 weeks 1 - 5 months 6 - 11 months 1 - 5 years 6 - 10 years 11 - 17 years PTT Mean: 35.4 (27.6-45.6) Mean: 33.5 (24.8-40.7) Mean: 32.4 (25.1-40.7) Mean: 31.6 (24.0-39.2) Mean: 31.6 (26.9-38.7) Mean: 31.0 (24.6-38.4) Pediatric Reference ranges were obtained from a study by Thierry Mcdonald et al. prepared from 1437 samples obtained at 7 different centers using the same coagulation reagent and instrumentation as [facility]. Currently there are no coagulation studies available worldwide for children to 14 days, and no normal ranges. Heparin therapeutic range (represented by Anti-Factor Xa activity of 0.2 - 0.4 U/mL) corresponds to PTT of 56.6 - 109.0 sec. INR Coag (PPP) [Relative time] 1.14 {INR} Invalid Interpretation Code [facility] Comment on above: Interpretive Data: I NR results are specifically intended to assess patients stabilized on long-term Anticoagulation therapy suggested INR s Less Intensive Anticoagulation 2.0 3.0 Conventional Range 3.0 4.5 PT Coag (PPP) [Time] 12.8 s High 9.4 - 1 2.5 second(s) [facility] Comment on above: Interpretive Data: 1 5 days - 4 weeks 1 - 5 months 6 -11 months 1-5 years 6-10 years 11 -17 years Mean: 11.2 (9.5-12.6) Mean: 11.0 (9.7-12.8) Mean: 11.0 (9.8-13.0) Mean: 11.3 (9.9-13.4) Mean: 11.7 (10.0-14.6) Mean: 11.8 (10.0 - 14.1) Pediatric Reference ranges were obtained from a study by jd Dutton al. prepared from 1437 samples obtained at 7 different centers using the same coagulation reagent and instrumentation as [facility]. Currently there are no coagulation studies available worldwide for children to 14 days, and no normal ranges. HEMATOLOGYOrdered By: SYSTEM SYSTEM on 06-30-2024 Basophils/100 WBC (Bld) 1.3 % Normal 0.0 - 2.0 % Remisol Heme Basophils/Leukocytes Auto (Bld) [Pure # fraction] 0.1 E9/L Normal 0.0 - 0.2 E9/L Rem[facility]e Eosinophils (Bld) [#/Vol] 0.1 E9/L Normal 0.0 - 0.5 E9/L [facility]e Eosinophils/100 WBC (Bld) 1.4 % Normal 0.0 - 8.0 % [facility]e Erythrocyte distribution width (RBC) [Ratio] 12.4 % Normal 10.9 - 14.2 % [facility]e Hematocrit (Bld) [Volume fraction] 43.3 % Normal 37.7 - 49.0 % [facility] Hemoglobin (Bld) [Mass/Vol] 15.3 g/dL Normal 13.5 - 17.5 gm/dL [facility] Lymphocytes (Bld) [#/Vol] 1.3 E9/L Normal 1.0 - 4.0 E9/L [facility] Lymphocytes/100 WBC (Bld) 14.8 % Normal 14.0 - 50.0 % [facility]e MCH (RBC) [Entitic mass] 32.2 pg Normal 27.0 - 34.0 pg Remisol Heme MCHC (RBC) [Mass/Vol] 35.3 g/dL Normal 31.4 - 36.0 gm/dL [facility] MCV (RBC) [Entitic vol] 91.1 fL Normal 80.0 - 100.0 fL [facility] Monocytes (Bld) [#/Vol] 0.7 E9/L Normal 0.2 - 1.0 E9/L [facility]e Monocytes/100 WBC (Bld) 8.2 % Normal 4.0 - 14.0 % [facility] Neutrophils (Bld) [#/Vol] 6.6 E9/L Normal 2.0 - 7.5 E9/L [facility] Neutrophils/100 WBC (Bld) 74.3 % Normal 36.0 - 75.0 % [facility] Platelet 645.0 E9/L High 150.0 - 500.0 E9/L [facility]e Platelet mean volume (Bld) [Entitic vol] 7.4 fL Normal 6.4 - 10.8 fL Rem[facility] Heme RBC (Bld) [#/Vol] 4.8 E12/L Normal 4.3 - 5.9 E12/L [facility]e WBC corrected for nucl RBC Auto (Bld) [#/Vol] 8.8 E9/L Normal 4.0 - 11.0 E9/L [facility] Lactic Acidon 06-30-2024 Lactic Acid Lvl 0.9 mmol/L Normal 0.5-2.2 [facility] Comment on above: Performed By: #### 2 [id number] #### [facility] [address] [place] [address] No Panel InformationOrdered By: [facility] on 06-30-2024 Blood Culture Charcoal No growth at 1 da y. Final to follow at 7 days. [facility] Blood Culture Charcoal No growth at 1 da y. Final to follow at 7 days. [facility] PT & PTTon 06-30-2024 aPTT Coag (PPP) [Time] 37.5 second(s) High 25.1-36.5 [facility] Comment on above: Result Comment: Para meter 15 days - 4 weeks 1 - 5 months 6 - 11 months 1 - 5 years 6 - 10 years 11 - 17 years PTT Mean: 35.4 (27.6-45.6) Mean: 33.5 (24.8-40.7) Mean: 32.4 (25.1-40.7) Mean: 31.6 (24.0-39.2) Mean: 31.6 (26.9-38.7) Mean: 31.0 (24.6-38.4) Pediatric Reference ranges were obtained from a study by Thierry Mcdonald et al. prepared from 1437 samples obtained at 7 different centers using the same coagulation reagent and instrumentation as [facility]. Currently there are no coagulation studies available worldwide for children to 14 days, and no normal ranges. Heparin therapeutic range (represented by Anti-Factor Xa activity of 0.2 - 0.4 U/mL) corresponds to PTT of 56.6 - 109.0 sec. Performed By: #### 1 [id number] #### [facility] [address] [place] [address] INR Coag (PPP) [Relative time] 1.14 {INR} Invalid Interpretation Code [facility] Comment on above: Result Comment: INR results are specifically intended to assess patients stabilized on long-term Anticoagulation therapy suggested INR?s ?Less Intensive Anticoagulation? 2.0 ? 3.0 Conventional Range 3.0 ? 4.5 Performed By: #### 1 [id number] #### [facility] [address] [place] [address] PT Coag (PPP) [Time] 12.8 second(s) High 9.4-12.5 [facility] Comment on above: Result Comment: 15 d ays - 4 weeks 1 - 5 months 6 -11 months 1- 5 years 6-10 years 11 -17 years Mean: 11.2 (9.5-12.6) Mean: 11.0 (9.7-12.8) Mean: 11.0 (9.8-13.0) Mean: 11.3 (9.9-13.4) Mean: 11.7 (10.0-14.6) Mean: 11.8 (10.0 - 14.1) Pediatric Reference ranges were obtained from a study by Thierry Mcdonald et al. prepared from 1437 samples obtained at 7 different centers using the same coagulation reagent and instrumentation as [facility]. Currently there are no coagulation studies available worldwide for children to 14 days, and no normal ranges. Performed By: #### 1 [id number] #### [facility] [address] [place] [address] eGFRon 06-30-2024 eGFR 92 mL/min/1.73 m2 Normal >=59 [facility] Comment on above: Order Comment: Order added by Discern Expert. Performed By: #### 1 [id number] #### [facility] [address] [place] [address] Maxx 06-17-2024 L Specimen: [id number] Received: 06/18/24 Status: MELO Buckley Num: [id number] Spec Type: Surgical Subm Dr: Jamie Oviedo DO Tissues: A Colon - Segmental Resection, Without Tumor Procedures: HE/6, Gross/Micro L5 Age/ Patient Sex Location Account Attending Physician Javier Gudino 49/M LABE[facility] [id number] Jamie Oviedo DO SPEC NUM: [id number] RECD: 06/18/24 STATUS: MELO BUCKLEY NUM: [id number] BRAD: 06/17/[address]: Jamie Oviedo DO ENTERED: 06/18/[address]: SPEC TYPE: Surgical DEPT: RAEGAN ESPINAL ENTERED BY: [id number] RECV BY: [id number] ORDERED: HE, Gross/Micro L5 ORDERED: , Gross/Micro L5 Pathological Diagnosis Sigmoid colon, sigmoidectomy: [...] adipose tissue is identified throughout the specimen. Hoist Operator sections are as follows: A1 first staple line en face A2 second staple line en face A3 diverticula A4-A5 areas of purulent debris Specimen: [id number] Received: 06/18/24 Status: MELO Buckley Num: [id number] Spec Type: Surgical Subm Dr: Jamie Oviedo DO Tissues: A Colon - Segmental Resection, Without Tumor Procedures: , Gross/Micro L5 Patient: Javier Gudino [id number] (Continued) Specimen: [id number] Received: 06/18/24 (Continued) Gross Description (Continued) Signed (signatur e on file) Shilpa Powell MD 06/20/24 1203 Specimen: [id number] Received: 06/18/24 Status: MELO Marcio Num: [id number] Spec Type: Surgical Subm Dr: Jamie Oviedo DO Tissues: A Colon - Segmental Resection, Without Tumor Procedures: Maria Antonia HERRERA/Juan Antonio L5 Patient: Javier Gudino [id number] (Continued) Specimen: [id number] Received: 06/18/24 (Continued) Gross Description (Continued) A6 1 lymph node candidate DM Microscopic Description Microscopic examinations are performed supporting the above interpretation CPT Codes 14177 Specimen: [id number] Received: 06/18/24 Status: MELO Buckley Num: [id number] Spec Type: Surgical Subm Dr: Jamie Oviedo DO Tissues: A Colon - Segmental Resection, Without Tumor Procedures: JASON/Aristeo, Gross/Micro L5 Patient: Javier Gudino [id number] (Continued) Signed (signatur e on file) Shilpa Powell MD 06/20/24 1203 Normal [facility] Vital Signs Date Time Vital Sign Value Performing Clinician Luke marte 07-01-2024 01:58-0400 Body temperature 97.88 [degF] Anthony Casper [facility] 07-01-2024 01:58-0400 Diastolic blood pressure 89 mm[Hg] Anthony Casper [facility] 07-01-2024 01:58-0400 Heart rate 75 /min Anthony Casper [facility] 07-01-2024 01:58-0400 Mean blood pressure 102 mm[Hg] Anthony Casper [facility] 07-01-2024 01:58-0400 Respiratory rate 13 /min Anthony Casper [facility] 07-01-2024 01:58-0400 SaO2% (BldA) [Mass fraction] 98 % Anthony Casper [facility] 07-01-2024 01:58-0400 Systolic blood pressure 128 mm[Hg] Anthony Casper [facility] 07-01-2024 01:00-0400 Diastolic blood pressure 103 mm[Hg] Anthony Casper [facility] 07-01-2024 01:00-0400 Mean blood pressure 117 mm[Hg] Anthony Casper [facility] 07-01-2024 01:00-0400 Respiratory rate 14 /min Antohny Casper [facility] 07-01-2024 01:00-0400 Systolic blood pressure 145 mm[Hg] Anthony Casper [facility] 07-01-2024 00:00-0400 Body temperature 97.7 [degF] Anthony Casper [facility] 07-01-2024 00:00-0400 Diastolic blood pressure 91 mm[Hg] Anthony Casper [facility] 07-01-2024 00:00-0400 Heart rate 83 /min Anthonyrishi Shirley [facility] 07-01-2024 00:00-0400 Mean blood pressure 103 mm[Hg] Anthony Casper [facility] 07-01-2024 00:00-0400 Respiratory rate 15 /min Anthony Casper [facility] 07-01-2024 00:00-0400 SaO2% (BldA) [Mass fraction] 97 % Anthony Shirley [facility] 07-01-2024 00:00-0400 Systolic blood pressure 127 mm[Hg] Anthony Shirley [facility] 06-30-2024 21:37-0400 Body temperature 97.88 [degF] Anthony Casper [facility] 06-30-2024 21:37-0400 Heart rate 77 /min Anthony Shirley [facility] 06-30-2024 21:37-0400 Respiratory rate 18 /min Anthony Shirley [facility] Encounters Encounter Date Encounter Type Care Provider Facility Start: 06-30-2024 End: 07-01-2024 Emergency department patient visit Anthony Shirley Facility:[facility] Start: 06-17-2024 End: 06-17-2024 ambulatory Jamie [facility] Work Phone: Start: 06-17-2024 End: 06-17-2024 Departed Referred DO Jamie Oviedo Work Phone: [facility] Payers Date Payer Category Payer Unknown [id number] 2024 Self-pay [id number] 1975 Unknown [id number] 1975 Unknown [id number] Unknown Floresita BC/DIMITRI [id number] Unknown [id number] [id number] [id number] Social History Date Type [facility]ail [facility] Work Phone: Start: 1975 Sex Assigned At Male [facility] Start: 06-30-2024 Tobacco smoking status Ex-smoker (fi nding) [facility] Sex Assigned At Male [facility] Functional Status Date Assessment Result Facility 06-30-2024 Functional Status N/A [facility] Evaluation + Plan note 07-01-2024 Note Date & Type Note Facility 07-01-2024 Evaluation + Plan note Extrac estrellita from: Title:ED Note Author:Zac MAYS, Mark Hall te:07/01/24 1. Wound dehiscence (T81.30X A: Disruption of wound, unspecified, initial encounter) Orders: Blood Culture Charcoal Blood Culture Charcoal CBC w/ Auto Diff Comprehensive Metabolic Panel Continuous Pulse Oximetry CT Abdomen/Pelvis w/ Contrast ECG 12 Lead Adult ED Cardiac Monitoring eGFR Lactic Acid Lactic Acid PT & PTT [facility] Hospital Discharge instructions 07-01-2024 Note Date & Type Note Facility 07-01-2024 Hospital Discharg e instructions Patient Education 07/01/2024 02:15:03 Wound Dehiscence Wound Dehiscence Wound dehiscence is when an incision breaks open and does not heal like it should after surgery. The incision may pull apart after it was closed. It usually happens 7 10 days after surgery. This can be serious and should be treated right away. What are the causes? Common causes of wound dehiscence include: Stretching of the wound area. This may be caused by lifting, vomiting, coughing hard, or straining during bowel movements. Wound infection. Early removal of stitches (sutures) or the sutures breaking or coming loose. Not enough blood flow to the wound area. What increases the risk? The following factors may make you more likely to develop wound dehiscence: Obesity. Lung disease. Smoking. Poor nutrition. Germs getting in the wound during surgery. Medical problems that make it harder to heal, such as diabetes or autoimmune diseases. Taking certain medicines like steroids. What are the signs or symptoms? Symptoms of this condition include: Bleeding or drainage from the wound. Pain. Fever. Swelling along the incision. The wound breaking open. How is this diagnosed? This condition may be diagnosed with a physical exam. Your health care provider will look at the incision for any changes in the wound. These changes can include a gap in the incision and more drainage or pain. The provider may ask if you have felt any stretching or tearing of the wound. You may also have tests, including: A wound culture to find if there is an infection. Imaging tests, such as an MRI scan or CT scan. These can help find pus or fluid under the skin of the wound. Blood tests to check for infection and inflammation. How is this treated? Treatment may include: Wound care to keep the incision clean and help it heal. Surgery to fix the incision. Antibiotics to treat or prevent infection. Medicines to lessen pain and swelling. Follow these instructions at home: Medicines Take xisi-ycv-asukhxz and prescription medicines only as told by your provider. If told by your provider, take pain medicine 30 minutes before changing a bandage (dressing). This can help relieve pain. If you were prescribed antibiotics, take them as told by your provider. Do not stop using the antibiotic even if you start to feel better. Wound care Clean the wound each day or as told by your provider. ?Wash the wound with mild soap and water 2 times a day or as told. ?Rinse the wound with water to remove all soap. ?Pat the wound dry with a clean towel. Do not rub it. Follow instructions from your provider about how to take care of your wound. Make sure you: ?Wash your hands with soap and water for at least 20 seconds before and after you change your dressing. If soap and water are not available, use hand turbine assembler. ?Change the dressing and the packing inside as told by your provider. ?Do not scratch or pick at the wound. ?Leave sutures, skin glue, or tape strips in place. These skin closures may need to stay in place for 2 weeks or longer. If tape strip edges start to loosen and curl up, you may trim the loose edges. Do not remove tape strips completely unless your provider tells you to do that. Check your wound every day for signs of infection. Check for: ?More redness, swelling, or pain. ?More fluid or blood. ?Warmth. ?Pus or a bad smell. Activity Avoid exercises that make you sweat or could stretch your wound. Do not lift anything heavier than 10 lb (4.5 kg) until the wound is healed or until your provider says that it is safe. General instructions Do not take baths, swim, or use a hot tub until your provider approves. Ask your provider if you may take showers. You may only be allowed to take sponge baths. Contact a health care provider if: Your wound does not seem to be healing right. You have a fever. You have signs of infection. Get help right away if: Your wound breaks open more. You have red streaks coming from your wound. You have a lot of bleeding coming from your wound. This information is not intended to replace advice given to you by your health care provider. Make sure you discuss any questions you have with your health care provider. Document Revised: 07/20/2023 Document Reviewed: 07/20/2023 [employer] Patient Education 2023 [employer]. Follow Up Care 06/30/2024 21:28:14 With:BRIAN OVIEDO Address: [address] [place] [phone]- Business (1) When:07/02/2024 Comments:Keep scheduled appointment [facility] Clinical Note 07-01-2024 Note Date & Type Note Facility 07-01-2024 Note ED Patient Education Note Dermatology Wound Dehiscence Wound dehiscence is when an incision breaks open and does not heal like it should after surgery. The incision may pull apart after it was closed. It usually happens 7?10 days after surgery. This can be serious and should be treated right away. What are the causes? Common causes of wound dehiscence include: ? Stretching of the wound area. This may be caused by lifting, vomiting, coughing hard, or straining during bowel movements. ? Wound infection. ? Early removal of stitches (sutures) or the sutures breaking or coming loose. ? Not enough blood flow to the wound area. What increases the risk? The following factors may make you more likely to develop wound dehiscence: ? Obesity. ? Lung disease. ? Smoking. ? Poor nutrition. ? Germs getting in the wound during surgery. ? Medical problems that make it harder to heal, such as diabetes or autoimmune diseases. ? Taking certain medicines like steroids. What are the signs or symptoms? Symptoms of this condition include: ? Bleeding or drainage from the wound. ? Pain. ? Fever. ? Swelling along the incision. ? The wound breaking open. How is this diagnosed? This condition may be diagnosed with a physical exam. Your health care provider will look at the incision for any changes in the wound. These changes can include a gap in the incision and more drainage or pain. The provider may ask if you have felt any stretching or tearing of the wound. You may also have tests, including: ? A wound culture to find if there is an infection. ? Imaging tests, such as an MRI scan or CT scan. These can help find pus or fluid under the skin of the wound. ? Blood tests to check for infection and inflammation. How is this treated? Treatment may include: ? Wound care to keep the incision clean and help it heal. ? Surgery to fix the incision. ? Antibiotics to treat or prevent infection. ? Medicines to lessen pain and swelling. Follow these instructions at home: Medicines ? Take ylth-sje-fmehwyw and prescription medicines only as told by your provider. ? If told by your provider, take pain medicine 30 minutes before changing a bandage (dressing). This can help relieve pain. ? If you were prescribed antibiotics, take them as told by your provider. Do not stop using the antibiotic even if you start to feel better. Wound care ? Clean the wound each day or as told by your provider. ? Wash the wound with mild soap and water 2 times a day or as told. ? Rinse the wound with water to remove all soap. ? Pat the wound dry with a clean towel. Do not rub it. ? Follow instructions from your provider about how to take care of your wound. Make sure you: ? Wash your hands with soap and water for at least 20 seconds before and after you change your dressing. If soap and water are not available, use hand turbine assembler. ? Change the dressing and the packing inside as told by your provider. ? Do not scratch or pick at the wound. ? Leave sutures, skin glue, or tape strips in place. These skin closures may need to stay in place for 2 weeks or longer. If tape strip edges start to loosen and curl up, you may trim the loose edges. Do not remove tape strips completely unless your provider tells you to do that. ? Check your wound every day for signs of infection. Check for: ? More redness, swelling, or pain. ? More fluid or blood. ? Warmth. ? Pus or a bad smell. Activity ? Avoid exercises that make you sweat or could stretch your wound. ? Do not lift anything heavier than 10 lb (4.5 kg) until the wound is healed or until your provider says that it is safe. General instructions ? Do not take baths, swim, or use a hot tub until your provider approves. Ask your provider if you may take showers. You may only be allowed to take sponge baths. Contact a health care provider if: ? Your wound does not seem to be healing right. ? You have a fever. ? You have signs of infection. Get help right away if: ? Your wound breaks open more. ? You have red streaks coming from your wound. ? You have a lot of bleeding coming from your wound. This information is not intended to replace advice given to you by your health care provider. Make sure you discuss any questions you have with your health care provider. Document Revised: 07/20/2023 Document Reviewed: 07/20/2023 [employer] Patient Education ? 2023 [employer] [facility] Evaluation note Note Date & Type Note Facility Evaluation note No assessment information availa dixon [facility] Work Phone: Hospital course Narrative Note Date & Type Note Facility Hospital course Narrative No data available for this section [facility] Progress note Note Date & Type Note Facility Progress note No data available for this section [facility] Advance Directives Advance Directive Response Recorded Date/ Time Advance Directives No November 08, 2021 2:40pm Summary Purpose Family History No Family History Records FoundNo Family History Records FoundNo Family History Records FoundNo Family History Records FoundNo Family History Records FoundNo Family History Records FoundNo Family History Records FoundNo Family History Records Found No data available for this section Additional Source Comments Care Teams (unrecognized sec tion and content) Personnel Name: ANATOLY CARRINGTON CNP Address: Address: [address] [place] [address] Team Status: Inactive Member Role Status Dates Jamie Oviedo DO Attending Provider Active Star t: June 17, 2024 End: June 17, 2024 Goals (unrecognized section and content) Goals may be documented in a n alternate section No data available for this section (unrecognized sect ion and content) No Status Records FoundNo Status Records FoundNo Status Records FoundNo Status Records FoundNo Status Records FoundNo Status Records FoundNo Status Records FoundNo Status Records Found INFORMATION SOURCE (unrecogn ized section and content) DATE CREATED AUTHOR 06/22/2024 [facility] DATE CREATED AUTHOR AUTHOR'S ORGANIZ ATION 06/30/2024 [facility] DATE CREATED AUTHOR AUTHOR'S ORGANIZ ATION 07/01/2024 [facility] FOR RECORDS PERTAINING TO PATIENTS WHO ARE [...] BE BASED ON THE PRIMARY CLINICAL RECORDS. [facility], [facility]. provides no warranty or guarantee of the accuracy or completeness of information in this document.
[2024-07-02] MEDS: LACTATED RINGER'S SOLUTION 1,000 ML 50 ML IV (11:50)
[2024-07-02] MEDS: SODIUM HYPOCHLORITE HALF STRENGTH (0.25%) 473 ML BOTTLE 30 ML TOPICAL (13:00)
--- NOTE | 2024-07-02 13:09 | W.PM.PROCNOT ---
Date of procedure: 07/02/24 Pre-op diagnosis: midline incisional wound breakdown Post-op diagnosis: same as pre-op Procedure: Hx of perforated diverticulitis with emergent Norman procedure on 06/18/24, had lower midline incisional wound breakdown Procedure: washout of midline incisional wound and placement of dakins soaked kerlix for wet to dry dressing, wound size [id number] The patient was taken to Operating Room, identified as the correct patient and the procedure verified. A Time Out was held and the above information confirmed. The patient was placed in supine position and anesthesia was induced per anesthesia team, along with placement of EPC cuffs. The abdomen was was prepped and draped in a sterile fashion. The previous midline incision was inspected and noted to have skin dehiscence below the umbilicus. There was a small skin bridge noted above and below an opening leading into a deeper pocket. This skin bridge was sharply with a combination of 10 blade scalpel and electrocautery for hemostasis. The skin edges and deeper portion of the incision site were inspected. No signs of infection. No erythema of the surrounding skin. Wound size approximately 8cm long, 3cm wide and 3cm deep. The site was packed with dakins .25% soaked gauze. Instrument, sponge, and needle counts were correct at the conclusion of the case. Patient tolerated the procedure well without any complications.? Patient was transferred to PACU in stable condition. Plan is for wound vac placement once approved per insurance. Anesthesia: MAC Surgeon: Jamie Oviedo Estimated blood loss (mL): 1 Pathology: none sent Condition: stable Disposition: PACU
--- NOTE | 2024-07-02 13:32 | SWNOTE1 ---
SAMIR spoke with Dr. Oviedo. Plan was for an incisional wound vac, but doctor decided on a bigger wound vac that he will need to order. Plan is for pt to go home with a wet to dry dressing chance and wound vac will be ordered. When pt was here last stay, he was set up with [address] SAMIR had Dr. Oviedo sign CRF with wet to dry dressing change order. SAMIR reached out to [address] shipping and receiving coordinator and waiting to hear back. SAMIR faxed over CRF, dempgraphic sheet, and operative note. SAMIR provided [address] with [address] Oviedo office number and fax.
== END 2024-07-02 14:20 | disposition home or self-care (01) ==
PROVIDERS: Visit Provider Surgery
PROC: (CPT 400; principal; 2024-07-02 12:30)
DX: T81.31XA Disruption of external operation (surgical) wound, not elsewhere classified, initial encounter (principal); K21.9 Gastro-esophageal reflux disease without esophagitis
CPT/HCPCS: 12021; J1100; J2250; J2405; J2704; J3010